=== PATIENT | male | born 1965 | race Caucasian/White ===

== ENCOUNTER 2017-01-13 18:16 | Inpatient (IN) ==
[2017-01-13] MEDS ORDERED: ACETAMINOPHEN 325 MG TABLET PO ONE (18:25)
[2017-01-13] MEDS ORDERED: 0.9 % SODIUM CHLORIDE 1,000 ML IV ONE ×3 (18:33→23:22)
[2017-01-13] MEDS ORDERED: AZITHROMYCIN 250 MG TABLET PO ONE (18:39)
[2017-01-13] MEDS ORDERED: cefTRIAXone 1 GM in DEXTROSE 5% IN WATER 50 ML IV ONE (18:39)
[2017-01-13] MEDS ORDERED: cefTRIAXone 1 GM VIAL ONE (18:58)
[2017-01-13 19:09] LABS: Basophils # (Auto) 0 K/mcL (0.0-0.3); Basophils % (Auto) 0.5 % (0.0-2.0); Eosinophils # (Auto) 0 K/mcL (0.0-0.7); Eosinophils % (Auto) 0.1 % (0.0-7.0); Granulocytes % (Auto) 90.6 % (38.0-78.0); Lymphocytes # (Auto) 0.4 K/mcL (1.5-4.8); Lymphocytes % (Auto) 3.9 % (15.5-49.0); Mean Cell Volume 87.6 fL (80.0-100.0); Mean Corpuscular HGB Conc 33.6 g/dL (31.0-36.0); Mean Corpuscular Hemoglobin 29.5 pg (26.0-34.0); Monocytes # (Auto) 0.5 K/mcL (0.1-0.9); Monocytes % (Auto) 4.9 % (1.0-12.0); Platelet Count 170 K/mcL (140-440); RBC 3.61 M/mcL (4.50-5.90)
[2017-01-13 19:28] LABS: ALT/SGPT 12 U/l (0-40); Albumin 2.8 gm/dL (3.2-5.2); Albumin/Globulin Ratio 0.8 (1.0-2.3); Alkaline Phosphatase 92 U/L (39-117); Blood Urea Nitrogen 37 mg/dl (6-20)
[2017-01-13] MEDS ORDERED: ALBUTEROL SULFATE 2.5 MG/3 ML NEBULIZER NEB ONE (19:33)
--- NOTE | 2017-01-13 19:36 | Emergency Department Note ---
Weakness HPI - General Chief complaint: Weakness Stated complaint: Weakness Time Seen by Provider: 01/13/17 19:33 Source: patient Mode of arrival: ambulatory Limitations: no limitations - History of Present Illness HPI Narrative: 51-year-old gentleman comes with feeling nauseated last evening and then nausea and vomiting this morning followed by feeling very cold and having bad shakes around 4 PM today. He has chronic rattles in his throat but he and his may have had a recent URI with bronchitis with an increase in some cough. He is not immune suppressed although has been in the past with Humira used for his psoriasis last given some time about 5 months ago. He reports having a TB test in the last year that was negative. He has had no recent travels. His cough is nonproductive, "I cannot get anything up". No recent aspiration concerns reported. - Related Data Allergies Allergy/AdvReac Type Severity Reaction Status Date / Time No Known Drug Allergies Allergy Verified 01/13/17 18:22 Review of Systems Review of Systems: No weight gain or weight loss. No sweatiness. Cardiovascular: No chest pain or palpitations but he does get swelling in his lower legs and ankles. Pulmonary: Short of breath, coughing, wheezing. Wheezing is mild and occasional chronically. GI: Nausea, vomiting, diarrhea, occasional constipation, no hematochezia. Genitourinary: No dysuria Neurologic: Has some headache now that is new. Some dizziness chronically. Off -and-on weakness today. He has chronic imbalance due to his previous stroke. He is supposed to use a cane per his . Endocrine: No chronic fatigue. Dermatologic: No unusual rashes or lesions except for his common ones of psoriasis. Past Medical History - Past Medical History Medical history: Reports: coronary artery disease, CVA, diabetes, GERD, hyperlipidemia, hypertension, myocardial infarction, thyroid disease, other ( left leg neuropathy; psoriasis.). Denies: cancer, COPD Surgical history ED: Reports: other (angioplasty vs stent) Psychiatric history: Denies: anxiety, depression - Social History smoking status: Current every day smoker Packs per day: 0.5 Alcohol use: Reports: Occasionally (6 pack per 2 weeks) Physical Exam - General Limitations: no limitations General appearance: alert, other (malaise (moderate)) - Head Head exam: atraumatic, normocephalic - Eye Eye exam: Present: normal appearance, PERRL (barely reactive.), EOMI - ENT ENT exam: normal oropharynx, mucous membranes dry (mild-moderately.), TM's normal bilaterally, normal external ear exam - Neck Neck exam: Present: trachea midline. Absent: lymphadenopathy, thyromegaly - Respiratory Respiratory exam: Present: other (crackles mild left base and occasionally in right base and left middle lung sears.). Absent: respiratory distress, wheezes , stridor, accessory muscle use, prolonged expiratory phase - Cardiovascular Cardiovascular exam: Present: regular rate, tachycardia. Absent: systolic murmur, diastolic murmur - Abdominal Exam Abdominal exam: Present: soft. Absent: distention, tenderness, guarding, rebound, rigidity - Neurological Exam Neurological exam: Present: alert, oriented X3, other (slight speech slowing; mentation mildly slowed.) - Psychiatric Psychiatric exam: Present: normal affect, normal mood - Skin Skin exam: Present: warm, dry Course Vital Signs Temperature 100.6 F H 01/13/17 18:17 Pulse Rate 126 H 01/13/17 18:17 Respiratory Rate 28 H 01/13/17 18:17 Blood Pressure 223/118 01/13/17 18:17 Pulse Oximetry (%) 85 L 01/13/17 18:17 Temperature 101.0 F H 01/13/17 20:51 Pulse Rate 121 H 01/13/17 18:30 Respiratory Rate 28 H 01/13/17 18:30 Blood Pressure 219/112 01/13/17 18:30 Pulse Oximetry (%) 94 01/13/17 18:30 Weakness - [facility] Narrative Medical decision making narrative: Patient presented with tachycardia, shortness of breath, crackles in the left base, fever, hypoxia. Multiple labs were drawn immediately including blood cultures and antibiotics were started quickly. A second set of blood culture was obtained after antibiotics. He is now given albuterol and additional IV fluids. Sepsis probably pneumonia source is initial consideration/impression. 7 :42 PM - Lab Data Result diagrams: 01/13/17 18:47 01/13/17 18:46 Lab Results 01/13/17 01/13/17 01/13/17 Range/Units 18:46 18:47 18:47 WBC 9.9 (4.5-11.0) K/mcL RBC 3.61 L (4.50-5.90) M/mcL Hgb 10.6 L (13.5-16.5) g/dL Hct 31.6 L (41.0-55.0) % MCV 87.6 (80.0-100.0) fL MCH 29.5 (26.0-34.0) pg MCHC 33.6 (31.0-36.0) g/dL RDW 16.0 H (11.5-14.5) % Plt Count 170 (140-440) K/mcL MPV 9.1 (7.4-10.4) fL Gran % 90.6 H (38.0-78.0) % Lymph % (Auto) 3.9 L (15.5-49.0) % Dougherty % (Auto) 4.9 (1.0-12.0) % Eos % (Auto) 0.1 (0.0-7.0) % Baso % (Auto) 0.5 (0.0-2.0) % Gran # 9.0 H (1.8-8.0) K/mcL Lymph # (Auto) 0.4 L (1.5-4.8) K/mcL Dougherty # (Auto) 0.5 (0.1-0.9) K/mcL Eos # (Auto) 0 (0.0-0.7) K/mcL Baso # (Auto) 0 (0.0-0.3) K/mcL VBG Lactic Acid 1.3 (0.5-2.2) mmol/L Sodium 141 (133-145) mmol/L Potassium 4.1 (3.3-5.1) mmol/L Chloride 108 (96-108) mmol/L Carbon Dioxide 17 L (22-30) mmol/L Anion Gap 16.0 (8-16) BUN 37 H (6-20) mg/dl Creatinine 2.7 H (0.7-1.2) mg/dl GFR Calculation 26 Glucose 402 H (70-105) mg/dL Calcium 8.2 L (8.6-10.4) mg/dl Total Bilirubin 0.3 (0.0-1.0) mg/dL AST 15 (0-37) U/l ALT 12 (0-40) U/l Alkaline Phosphatase 92 (39-117) U/L Total Protein 6.2 (5.9-8.4) gm/dL Albumin 2.8 L (3.2-5.2) gm/dL Globulin 3.4 (2.2-3.7) gm/dL Albumin/Globulin Ratio 0.8 L (1.0-2.3) Procalcitonin (<0.10) ng/mL 01/13/17 Range/Units 18:47 WBC (4.5-11.0) K/mcL RBC (4.50-5.90) M/mcL Hgb (13.5-16.5) g/dL Hct (41.0-55.0) % MCV (80.0-100.0) fL MCH (26.0-34.0) pg MCHC (31.0-36.0) g/dL RDW (11.5-14.5) % Plt Count (140-440) K/mcL MPV (7.4-10.4) fL Gran % (38.0-78.0) % Lymph % (Auto) (15.5-49.0) % Dougherty % (Auto) (1.0-12.0) % Eos % (Auto) (0.0-7.0) % Baso % (Auto) (0.0-2.0) % Gran # (1.8-8.0) K/mcL Lymph # (Auto) (1.5-4.8) K/mcL Dougherty # (Auto) (0.1-0.9) K/mcL Eos # (Auto) (0.0-0.7) K/mcL Baso # (Auto) (0.0-0.3) K/mcL VBG Lactic Acid (0.5-2.2) mmol/L Sodium (133-145) mmol/L Potassium (3.3-5.1) mmol/L Chloride (96-108) mmol/L Carbon Dioxide (22-30) mmol/L Anion Gap (8-16) BUN (6-20) mg/dl Creatinine (0.7-1.2) mg/dl GFR Calculation Glucose (70-105) mg/dL Calcium (8.6-10.4) mg/dl Total Bilirubin (0.0-1.0) mg/dL AST (0-37) U/l ALT (0-40) U/l Alkaline Phosphatase (39-117) U/L Total Protein (5.9-8.4) gm/dL Albumin (3.2-5.2) gm/dL Globulin (2.2-3.7) gm/dL Albumin/Globulin Ratio (1.0-2.3) Procalcitonin 0.55 (<0.10) ng/mL Disposition Pt seen by TRIPE COOKER/PA only: No Clinical Impression: Tachycardia, Hypoxia, Abnormal ECG Pneumonia Qualifiers: Pneumonia type: due to unspecified organism Laterality: unspecified laterality Lung location: unspecified part of lung Qualified Code(s): J18.9 - Pneumonia, unspecified organism Fever Qualifiers: Fever type: unspecified Qualified Code(s): R50.9 - Fever, unspecified Disposition: Xfer As Inpt ([facility]) Condition: Serious Referrals: No,PCP [Primary Care Provider] -
--- NOTE | 2017-01-13 22:22 | Internal Med History&Physical ---
Medical - H&P: HPI Patient information: Note initiated : 01/13/17 at 10:19 pm Service Date, if different from initiated Date: [] Patient: Vince Rivas a 51 y/o M admitted on for Weakness. Chief Complaint: [] History of present illness: Mr. Rivas is a 51 year old Male with multiple medical issues h/o humira use for psoriasis, but not for last 6 months presents to the ER with his as he was not feeling well over last 2 days. the patient was at his baseline status until yesterday afternoon when he noticed he was having some cough and not feeling very well, associated with some nauseaand stomach upset. His has had and while infection and he thought that he has got the same. This morning the patient had some nausea and vomiting. No blood in vomitus, however, he did vomit out what ever he ate. He has been feeling progressively weak since yesterday Since this afternoon he has been dizzy with weakness, unable to ambulate well, having chills, rigors and sweating, he therefore presented to the hospital for further evaluation. In the ER he was febrile, hypertensive, tachycardic and tachypenic, He was not ed to have left basilar crackles and was thought to have pneuonia. labs show normal wbc, elevated procal at 0.55, elevated creat at 2.7, no h/o renal dysfunction as per patient. The X Ray was done not officially reported but there is diffuse congestion and possible left retrocardiac infiltrate. The patient was given rocephin and zithromax and admitted to the hospital for further management. ABG done in the ER 7. on 2 L oxygen. All systems: reviewed and no additional remarkable complaints except as stated ( as per hpi) Medical - H&P: PMH Medical history: TIA dm htn hld cad mi 2014 gerd tghyroid issues neuropathy Surgical history: denies major surgery Pertinent family history: mother diet from heart issues dad healthy as per patient. Social history: binge social drinker smoker denies recreational drugs lives in [place] lives with Medical - H&P: Meds Allergies Allergy/AdvReac Type Severity Reaction Status Date / Time No Known Drug Allergies Allergy Verified 01/13/17 18:22 Medical - H&P: Exam - Constitutional Vitals: Temp Pulse Resp BP Pulse Ox 101.0 F H 121 H 28 H 219/112 94 01/13/17 20:51 01/13/17 18:30 01/13/17 18:30 01/13/17 18:30 01/13/17 18:30 Exam: GENERAL: The patient is a well-developed, well-nourished in no apparent distress. Is alert and oriented x3. VITAL SIGNS: Reviewed and as noted elsewhere. HEENT: Head is normocephalic and atraumatic. Extraocular muscles are intact. Pupils are equal, round, and reactive to light. Nares appeared normal. Mouth appears any without lesions. Mucous membranes are dry NECK: Normal to inspection, Supple, No lymphadenopathy or thyromegaly. LUNGS: Air entry equal on both sides, no wheezing, left basilar crackles noted. No accessory muscles of respiration, he was mildly tachenic, speaking full sentences. HEART: tachycardic rate and rhythm normal, S1 and S2 heard, no Gallop, S3 or Rub Noted, No Gross murmur heard. ABDOMEN: Soft, nontender, and nondistended. Positive bowel sounds. No hepatosplenomegaly was noted. EXTREMITIES: No cyanosis, clubbing, rash, lesions, present edema +++ NEUROLOGIC: Cranial nerves II through XII are grossly intact. Motor and Sensory System Grossly Intact PSYCHIATRIC: Normal affect, Normal Mood. Appropriate Behavior. SKIN: No ulceration or wounds noted, No jaundice, No rash noted. Medical - H&P: Reslt - Labs CBC & Chem 7: 01/13/17 18:47 01/13/17 18:46 Labs: Short CBC 01/13/17 Range/Units 18:47 WBC 9.9 (4.5-11.0) K/mcL Hgb 10.6 L (13.5-16.5) g/dL Hct 31.6 L (41.0-55.0) % Plt Count 170 (140-440) K/mcL BMP 01/13/17 18:46 Sodium 141 Potassium 4.1 Chloride 108 Carbon Dioxide 17 L BUN 37 H Creatinine 2.7 H Glucose 402 H Calcium 8.2 L Liver Function 01/13/17 Range/Units 18:46 Total Bilirubin 0.3 (0.0-1.0) mg/dL AST 15 (0-37) U/l ALT 12 (0-40) U/l Alkaline Phosphatase 92 (39-117) U/L Albumin 2.8 L (3.2-5.2) gm/dL - EKG Data -: EKG Reviewed by Myself (non sp st wave changes, no old ekg to compare. ) Medical - H&P: A/P - Narrative A/P Narrative: A/P Sepsis Community Acquired pneumonia Acute Kidney Injury Hyperglycemia, Uncontrolled Diabetes HTN CAD s/p DE Hypothrodism Neuropathy Non Anion Gap Acidosis Admit to telemetery status IV rocephin and zithromax for pna IV fluids, and monitor renal function get UA, consider renal sonogram if renal function does not improve with fluids check flu sliding scale insulin for DM get home medication list resume home meds once verified and appropriate ASA/ statin for cad for now, pt does not have active chest pain. DVT prophylaxis with hep sq Diet cardiac diabetic Full code PCP dr Mega Colin at [facility].
[2017-01-13] MEDS ORDERED: NALOXONE HCL 0.4 MG/ML VIAL IV PRN (23:22)
[2017-01-13] MEDS ORDERED: DEXTROSE 31 GM ORAL.SUSP PO PRN (23:22)
[2017-01-13] MEDS ORDERED: ONDANSETRON 4 MG/2 ML VIAL IV PRN (23:22)
[2017-01-13] MEDS ORDERED: ACETAMINOPHEN 325 MG TABLET PO PRN (23:22)
[2017-01-13] MEDS ORDERED: MAGNESIUM HYDROXIDE 30 ML ORAL.SUSP PO PRN (23:22)
[2017-01-13] MEDS ORDERED: DEXTROSE 50% 50 ML VIAL IV PRN (23:22)
[2017-01-13] MEDS: IPRATROPIUM/ALBUTEROL 3 ML AMPUL.NEB NEB SCH (23:50)
[2017-01-13] MEDS: cloNIDine HCL 0.1 MG TABLET PO PRN (23:50)
[2017-01-13] MEDS ORDERED: cloNIDine HCL 0.1 MG TABLET ONE (23:56)
[2017-01-13] MEDS ORDERED: IPRATROPIUM/ALBUTEROL 3 ML AMPUL.NEB NEB ONE (23:57)
[2017-01-14] LABS: Appearance,Urine HAZY; Bacteria,Urine FEW /hpf (0); Bilirubin,Urine NEG (NEG); Color,Urine YELLOW; Glucose,Urine (UA) >=500 mg/dL (NEG); Leukocyte Esterase,Urine NEG /uL (NEG); Mucus,Urine FEW /hpf (0); Nitrate,Urine NEG (NEG); Protein,Urine >=500 mg/dL (NEG); Specific Gravity,Urine 1.021 (1.000-1.035); Urine Blood 0.03 mg/dL (<0.03); Urine Hyaline Cast 20 /lpf (0-2); Urine RBC 6 /hpf (0-1); Urine Squamous Epithelial Cell < 1 /hpf (0-4); Urine Transitional Epi Cells < 1 /hpf (0-2); Urine WBC 1 /hpf (0-4); Urobilinogen,Urine NEG (NEG)
[2017-01-14] MEDS: INSULIN LISPRO 1 UNIT/0.01 ML UNIT SQ SCH ×5 (00:15→21:47)
[2017-01-14] MEDS ORDERED: INSULIN LISPRO 1 UNIT/0.01 ML UNIT SQ ONE (00:21)
[2017-01-14] MEDS ORDERED: IPRATROPIUM/ALBUTEROL 3 ML AMPUL.NEB NEB ONE (04:25)
[2017-01-14] MEDS: IPRATROPIUM/ALBUTEROL 3 ML AMPUL.NEB NEB SCH ×6 (04:40→22:39)
[2017-01-14] MEDS ORDERED: ACETAMINOPHEN 325 MG TABLET PO ONE (05:02)
[2017-01-14] MEDS ORDERED: cloNIDine HCL 0.1 MG TABLET ONE (05:02)
[2017-01-14 06:48] LABS: Estimated Average Glucose(eAG) 197 mg/dL; Hemoglobin A1C 8.5 % HGB (4.0-6.0)
--- NOTE | 2017-01-14 07:44 | XRay Report ---
HISTORY: Reason for Exam:Low o2 sats, SOB FINDINGS: There is a generalized haziness in the lung parenchyma bilaterally. This obscures pulmonary vessels. A band of discoid atelectasis is present centrally in the left lung. There is no lobar consolidation or pleural effusion. The heart size is within normal limits. IMPRESSION: Widespread opacities in both lungs. This could be due to pneumonia, pulmonary vascular congestion or nonspecific inflammatory reaction Interpreted and Authenticated by: Roger Cote 01/14/17
[2017-01-14 08:21] LABS: Basophils # (Auto) 0 K/mcL (0.0-0.3); Basophils % (Auto) 0.1 % (0.0-2.0); Eosinophils # (Auto) 0.1 K/mcL (0.0-0.7); Eosinophils % (Auto) 0.7 % (0.0-7.0); Granulocytes % (Auto) 83.4 % (38.0-78.0); Lymphocytes # (Auto) 0.5 K/mcL (1.5-4.8); Lymphocytes % (Auto) 6.1 % (15.5-49.0); Mean Cell Volume 87.4 fL (80.0-100.0); Mean Corpuscular Hemoglobin 28.9 pg (26.0-34.0); Monocytes # (Auto) 0.8 K/mcL (0.1-0.9); Monocytes % (Auto) 9.7 % (1.0-12.0); Platelet Count 161 K/mcL (140-440); RBC 3.17 M/mcL (4.50-5.90); Red Cell Distribution Width 16.2 % (11.5-14.5)
[2017-01-14] MEDS: HEPARIN 5,000 UNIT/ML VIAL SQ SCH ×2 (08:39→21:47)
[2017-01-14] MEDS: FAMOTIDINE 20 MG TABLET PO SCH ×2 (08:39→21:47)
[2017-01-14 09:04] LABS: ALT/SGPT 10 U/l (0-40); Albumin 2.4 gm/dL (3.2-5.2); Albumin/Globulin Ratio 0.8 (1.0-2.3); Alkaline Phosphatase 69 U/L (39-117); Bilirubin,Direct < 0.2 mg/dL (0.0-0.3); Blood Urea Nitrogen 38 mg/dl (6-20); Gamma Glutamyl Transpeptidase 14 U/L (8-61); Magnesium 1.3 mg/dL (1.6-2.5); Uric Acid 6.2 mg/dL (2.5-8.0)
[2017-01-14] MEDS: AZITHROMYCIN 250 MG in DEXTROSE 5% IN WATER 250 ML IV SCH (10:10)
[2017-01-14] MEDS: cloNIDine HCL 0.1 MG TABLET PO PRN ×2 (11:48→16:35)
--- NOTE | 2017-01-14 13:29 | Ultrasound Report ---
History: Acute renal failure Findings: Right kidney measures 5.5 x 6.9 x 12.3 cm the left measures 4.8 x 5.5 x 10.8 cm. There is a simple cyst in the lower pole of the left kidney which measures 2.5 x 2.6 x 2.9 cm. No mass, calculus or hydronephrosis are present in either kidney. The renal parenchyma is mildly echogenic bilaterally but there is no apparent loss of renal cortex. The urinary bladder is well distended containing 255 cc of urine. However, we were unable to document flow of urine through either ureter into the bladder. After voiding there is 111 cc of residual urine. Impression: Mild increased echogenicity in the renal cortex bilaterally due to medical renal disease Diminished urine output bilaterally, but without evidence of urinary tract obstruction Interpreted and Authenticated by: Roger Cote 01/14/17
[2017-01-14] MEDS ORDERED: 0.9 % SODIUM CHLORIDE 500 ML IV ONE (14:03)
[2017-01-14] MEDS ORDERED: 0.9 % SODIUM CHLORIDE 1,000 ML IV SCH (14:15)
[2017-01-14] MEDS: methylPREDNISolone SOD SUCC 125 MG/2 ML VIAL IV SCH ×2 (14:43→21:44)
[2017-01-14] MEDS: cefTRIAXone 1 GM in DEXTROSE 5% IN WATER 50 ML IV SCH (14:43)
--- NOTE | 2017-01-14 18:17 | Internal Med Progress Note ---
Medical - PN: Subj Patient information: Note initiated : 01/14/17 at 6:15 pm Service Date, if different from initiated Date: [] Patient: Vince Rivas a 51 y/o M admitted on 01/13/17 for Weakness/Pneumonia. Chief Complaint: [] Interval history: Mr. Rivas is a 51 year old Male with multiple medical issues h/o humira use for psoriasis, but not for last 6 months presents to the ER with his as he was not feeling well over last 2 days. the patient was at his baseline status until yesterday afternoon when he noticed he was having some cough and not feeling very well, associated with some nauseaand stomach upset. His has had and while infection and he thought that he has got the same. This morning the patient had some nausea and vomiting. No blood in vomitus, however, he did vomit out what ever he ate. He has been feeling progressively weak since yesterday Since this afternoon he has been dizzy with weakness, unable to ambulate well, having chills, rigors and sweating, he therefore presented to the hospital for further evaluation. In the ER he was febrile, hypertensive, tachycardic and tachypenic, He was not ed to have left basilar crackles and was thought to have pneuonia. labs show normal wbc, elevated procal at 0.55, elevated creat at 2.7, no h/o renal dysfunction as per patient. The X Ray was done not officially reported but there is diffuse congestion and possible left retrocardiac infiltrate. The patient was given rocephin and zithromax and admitted to the hospital for further management. ABG done in the ER 7.37 on 2 L oxygen. Oct 5 Pt seen exmined, somewhat looks better but still febrile, wbc normal, patient still febrile, renal functino worsening, renal usg ordered, IV fluids started, consider renal consult in AM if renal function continues to worsen Patient still has cough and feels weak and fatigued, but otherwise no other complaints. Pertinent ROS: Denies headache, dizziness Denies chest pain, palpitations Denies cough or shortness of breath Denies abdominal pain, nausea or vomiting. - Constitutional Vitals: Vital Signs Temp Pulse Resp BP Pulse Ox 98.6 F 98 H 24 H 193/100 92 01/14/17 17:20 01/14/17 16:00 01/14/17 16:00 01/14/17 16:00 01/14/17 16:00 Period Temp Pulse Resp BP Sys/Cade Pulse Ox Last 24 Hr 98.6 F-103.4 F 92-126 16-28 153-223/86-118 85-100 Intake and Output 01/14/17 01/14/17 01/14/17 05:59 13:59 21:59 Intake Total 100 / 100 970 / 970 200 / 200 Output Total 2 / 2 400 / 400 500 / 500 Balance 98 / 98 570 / 570 -300 / -300 Weight 205 lb 8 oz 205 lb 8 oz Patient Weight 01/15/17 05:59 Weight 205 lb 8 oz Intake & Output: Intake & Output 01/14/17 01/14/17 01/14/17 05:59 13:59 21:59 Intake Total 100 / 100 970 / 970 200 / 200 Output Total 2 / 2 400 / 400 500 / 500 Balance 98 / 98 570 / 570 -300 / -300 Weight 205 lb 8 oz 205 lb 8 oz Intake: IV 250 / 250 Zithromax 250 mg In Dextrose 5% 250 / 250 in Water 250 ml @ 250 mls/hr IV Q24H [facility] Rx#:[id number] Oral 100 / 100 720 / 720 200 / 200 Output: Urine Catheter Amount 100 / 100 Void Amount 400 / 400 400 / 400 # of times incontinent of urine 2 / 2 Other: Meal Breakfast Percent of Meal Consumed 50% Feeding Ability Independent Exam: Constitutional; febrile, cooperative, alert, not in distress. Eyes- No icterus, , No periorbital swelling Ears- Ext ear normal, hearing normal to conversation. Neck- Midline trachea, supple Respiratory system: Air Entry equal on both sides, No crackles , ronn wheezing, CVS- Rate rhythm regular, S1,S2 heard, no gallop, no rub. Abdomen- Soft nontender abdomen, no organomegaly, no tenderness, no guarding or rigidity, UNDERCUTTER- AOOx3, moving all extremities, no gross focal deficit noted. Medical - PN: Obj Da - Labs CBC & Chem 7: 01/14/17 03:30 01/14/17 08:09 Labs: Abnormal Lab Results 01/14/17 01/14/17 01/14/17 08:09 03:30 03:30 RBC 3.17 L Hgb 9.1 L Hct 27.7 L RDW 16.2 H Gran % 83.4 H Lymph % (Auto) 6.1 L Gran # Lymph # (Auto) 0.5 L Chloride 110 H Carbon Dioxide 20 L BUN 38 H Creatinine 3.1 H Glucose 162 H Hemoglobin A1c 8.5 H Calcium 8.0 L Magnesium 1.3 L Lactate Dehydrogenase 289 H Total Protein 5.3 L Albumin 2.4 L Albumin/Globulin Ratio 0.8 L Urine Protein Urine Glucose (UA) Urine Ketones Urine Occult Blood Urine RBC Urine Bacteria Hyaline Casts U [place] Prot/Creat Ratio 01/13/17 01/13/17 01/13/17 22:45 22:45 18:47 RBC 3.61 L Hgb 10.6 L Hct 31.6 L RDW 16.0 H Gran % 90.6 H Lymph % (Auto) 3.9 L Gran # 9.0 H Lymph # (Auto) 0.4 L Chloride Carbon Dioxide BUN Creatinine Glucose Hemoglobin A1c Calcium Magnesium Lactate Dehydrogenase Total Protein Albumin Albumin/Globulin Ratio Urine Protein >=500 A Urine Glucose (UA) >=500 A Urine Ketones 20 A Urine Occult Blood 0.03 A Urine RBC 6 H Urine Bacteria Few A Hyaline Casts 20 H U [place] Prot/Creat Ratio 1.93 H 01/13/17 18:46 RBC Hgb Hct RDW Gran % Lymph % (Auto) Gran # Lymph # (Auto) Chloride Carbon Dioxide 17 L BUN 37 H Creatinine 2.7 H Glucose 402 H Hemoglobin A1c Calcium 8.2 L Magnesium Lactate Dehydrogenase Total Protein Albumin 2.8 L Albumin/Globulin Ratio 0.8 L Urine Protein Urine Glucose (UA) Urine Ketones Urine Occult Blood Urine RBC Urine Bacteria Hyaline Casts U [place] Prot/Creat Ratio Meds: Medications Acetaminophen (Tylenol) 650 mg PO Q6HP PRN PRN Reason: PAIN/FEVER > 101 Last Admin: 01/14/17 16:35 Dose: 650 mg Albuterol/Ipratropium (Duoneb) 3 ml NEB Q4HRT GABO Last Admin: 01/14/17 14:17 Dose: Not Given Clonidine HCl (Catapres) 0.1 mg PO Q4HP PRN PRN Reason: Hypertension Last Admin: 01/14/17 16:35 Dose: 0.1 mg Dextrose (Dextrose 50%) 0 ml IV UD PRN PRN Reason: Hypoglycemia Diagnostic Test (Pha) (Accu-Chek) 1 each FS ACHS [facility] Last Admin: 01/14/17 17:00 Dose: 1 each Famotidine (Pepcid) 20 mg PO BID [facility] Last Admin: 01/14/17 08:39 Dose: 20 mg Glucose (Insta-Glucose) 15 gm PO PRN PRN PRN Reason: Hypoglycemia Heparin Sodium (Porcine) (Heparin) 5,000 unit SQ Q12 [facility] Last Admin: 01/14/17 08:39 Dose: 5,000 unit Azithromycin 250 mg/ Dextrose 250 mls @ 250 mls/hr IV Q24H [facility] Stop: 01/17/17 10:59 Last Infusion: 01/14/17 11:43 Dose: Infused Ceftriaxone Sodium 1 gm/ (Dextrose) 50 mls @ 100 mls/hr IV Q24H [facility] Last Admin: 01/14/17 14:43 Dose: 100 mls/hr Sodium Chloride (Sodium Chloride 0.9%) 1,000 mls @ 84 mls/hr IV .[id number] [facility] Last Admin: 01/14/17 14:42 Dose: 84 mls/hr Insulin Human Lispro (Humalog) 0 unit SQ ACHS [facility] PRN Reason: Protocol Last Admin: 01/14/17 17:02 Dose: Not Given Magnesium Hydroxide (Milk Of Magnesia) 30 ml PO DAILYP PRN PRN Reason: Constipation Methylprednisolone Sodium Succinate (Solu-Medrol) 62.5 mg IV Q8 [facility] Last Admin: 01/14/17 14:43 Dose: 62.5 mg Naloxone HCl (Narcan) 0.1 mg IV Q2MIN PRN PRN Reason: Opiate Reversal Ondansetron HCl (Zofran) 4 mg IV Q4HP PRN PRN Reason: Nausea And Vomiting Oxycodone/Acetaminophen (Percocet 5-325 Mg) 1 tab PO Q4HP PRN PRN Reason: Pain Medical - PN: A/P - Time Spent With Patient Total time spent is greater than 50% in coordination of care (as documented) at patient's floor/unit and/or counseling patient: - Narrative A/P Narrative: A/P Sepsis Community Acquired pneumonia Acute Kidney Injury Hyperglycemia, Uncontrolled Diabetes HTN CAD s/p MD Hypothrodism Neuropathy Non Anion Gap Acidosis copd/asthama exacerbation Continue IV rocephin and zithromax for pna, day 2 today, X Ray reported as ronn pna IV fluids, renal function worsening, renal sonogram ordered, urine studies ordered, yepez in place REnal consult in AM if renal function continues to worsen flu is neg sliding scale insulin for DM hold nephrotoxic meds, monitor. ASA/ statin for cad for now, pt does not have active chest pain. DVT prophylaxis with hep sq Diet cardiac diabetic Full code PCP dr Mega Colin at [facility]. Medical - PN: Qual - VTE Deep Vein Thrombosis/Pulmonary Embolism Present on Admission: No
[2017-01-14] MEDS ORDERED: FUROSEMIDE 40 MG/4 ML VIAL IV ONE ×2 (19:31→19:46)
[2017-01-14] MEDS ORDERED: SIMVASTATIN 40 MG TABLET PO SCH (21:00)
[2017-01-14 21:03] LABS: Blood Urea Nitrogen 41 mg/dl (6-20)
[2017-01-14] MEDS: PREGABALIN 100 MG CAPSULE PO SCH (21:46)
[2017-01-14] MEDS: oxyCODONE/APAP 5/325MG TABLET PO PRN (21:47)
[2017-01-15] MEDS: IPRATROPIUM/ALBUTEROL 3 ML AMPUL.NEB NEB SCH ×6 (02:33→23:07)
[2017-01-15] MEDS: methylPREDNISolone SOD SUCC 125 MG/2 ML VIAL IV SCH (05:23)
[2017-01-15 06:26] LABS: Basophils # (Auto) 0 K/mcL (0.0-0.3); Basophils % (Auto) 0.2 % (0.0-2.0); Eosinophils # (Auto) 0 K/mcL (0.0-0.7); Eosinophils % (Auto) 0.5 % (0.0-7.0); Granulocytes % (Auto) 85.4 % (38.0-78.0); Lymphocytes # (Auto) 0.5 K/mcL (1.5-4.8); Lymphocytes % (Auto) 11.4 % (15.5-49.0); Mean Cell Volume 87.9 fL (80.0-100.0); Mean Corpuscular HGB Conc 33.8 g/dL (31.0-36.0); Mean Corpuscular Hemoglobin 29.7 pg (26.0-34.0); Monocytes # (Auto) 0.1 K/mcL (0.1-0.9); Monocytes % (Auto) 2.5 % (1.0-12.0); Platelet Count 155 K/mcL (140-440); RBC 3.13 M/mcL (4.50-5.90); Red Cell Distribution Width 15.9 % (11.5-14.5)
[2017-01-15 07:29] LABS: ALT/SGPT 12 U/l (0-40); Albumin 2.5 gm/dL (3.2-5.2); Albumin/Globulin Ratio 0.8 (1.0-2.3); Alkaline Phosphatase 69 U/L (39-117); Bilirubin,Direct < 0.2 mg/dL (0.0-0.3); Blood Urea Nitrogen 47 mg/dl (6-20); Gamma Glutamyl Transpeptidase 16 U/L (8-61); Magnesium 1.5 mg/dL (1.6-2.5)
--- NOTE | 2017-01-15 07:42 | XRay Report ---
HISTORY: Reason for Exam:shortness of breath FINDINGS: There is a generalized haziness in the lung parenchyma bilaterally. This is unchanged from 01/13/17. The previously seen band of discoid atelectasis located in the central portion of the left lung has resolved. There is minor pleural thickening at the left costophrenic sulcus. The heart size is within normal limits. The pulmonary vessels are obscured by the alveolar opacities. IMPRESSION: Persistent infiltrates in both lungs which could be due to pneumonia, pulmonary vascular congestion or a nonspecific inflammatory reaction Interpreted and Authenticated by: Roger Cote 01/15/17
[2017-01-15] MEDS: INSULIN LISPRO 1 UNIT/0.01 ML UNIT SQ SCH ×7 (07:59→22:13)
[2017-01-15] MEDS: cefTRIAXone 1 GM in DEXTROSE 5% IN WATER 50 ML IV SCH (09:14)
[2017-01-15] MEDS: PREGABALIN 100 MG CAPSULE PO SCH ×2 (09:14→20:20)
[2017-01-15] MEDS: HEPARIN 5,000 UNIT/ML VIAL SQ SCH ×2 (09:14→20:21)
[2017-01-15] MEDS: FAMOTIDINE 20 MG TABLET PO SCH ×2 (09:15→20:20)
[2017-01-15] MEDS: amLODIPine 10 MG TABLET PO SCH (09:15)
[2017-01-15] MEDS ORDERED: FLU VACC QS2017-18 36MOS UP/PF 60 MCG/0.5 ML SYRINGE IM ONE (10:00)
[2017-01-15] MEDS: AZITHROMYCIN 250 MG in DEXTROSE 5% IN WATER 250 ML IV SCH (10:13)
[2017-01-15] MEDS ORDERED: INSULIN REGULAR, HUMAN 1 UNIT/0.01 ML UNIT IV ONE (13:43)
[2017-01-15] MEDS ORDERED: INSULIN REGULAR, HUMAN 1 UNIT/0.01 ML UNIT ONE (14:14)
--- NOTE | 2017-01-15 14:53 | Internal Med Progress Note ---
Medical - PN: Subj Patient information: Note initiated : 01/15/17 at 2:51 pm Service Date, if different from initiated Date: [] Patient: Vince Rivas a 51 y/o M admitted on 01/13/17 for Weakness/Pneumonia. Chief Complaint: [] Interval history: Mr. Rivas is a 51 year old Male with multiple medical issues h/o humira use for psoriasis, but not for last 6 months presents to the ER with his as he was not feeling well over last 2 days. the patient was at his baseline status until yesterday afternoon when he noticed he was having some cough and not feeling very well, associated with some nauseaand stomach upset. His has had and while infection and he thought that he has got the same. This morning the patient had some nausea and vomiting. No blood in vomitus, however, he did vomit out what ever he ate. He has been feeling progressively weak since yesterday Since this afternoon he has been dizzy with weakness, unable to ambulate well, having chills, rigors and sweating, he therefore presented to the hospital for further evaluation. In the ER he was febrile, hypertensive, tachycardic and tachypenic, He was not ed to have left basilar crackles and was thought to have pneuonia. labs show normal wbc, elevated procal at 0.55, elevated creat at 2.7, no h/o renal dysfunction as per patient. The X Ray was done not officially reported but there is diffuse congestion and possible left retrocardiac infiltrate. The patient was given rocephin and zithromax and admitted to the hospital for further management. ABG done in the ER 7. on 2 L oxygen. Jan 14 Pt seen exmined, somewhat looks better but still febrile, wbc normal, patient still febrile, renal functino worsening, renal usg ordered, IV fluids started, consider renal consult in AM if renal function continues to worsen Patient still has cough and feels weak and fatigued, but otherwise no other complaints. January 15: patient seen examined, looks better, feels better, wbc trending down and he is afebrile He denies any acute complaints but still is weak His labs show worsening acidosis and worsening renal functin, creat is up to 3.2 now, He is making urine, I have consulted nephrolgoy for eval ABG done today shows PH 7.32/, lactic acid is 0.7 he is participating in PT and seems to be doing well Pertinent ROS: Denies headache, dizziness Denies chest pain, palpitations cough and shortness of breath, much better Denies abdominal pain, nausea or vomiting. - Constitutional Vitals: Vital Signs Temp Pulse Resp BP Pulse Ox 98.8 F 81 18 187/105 98 01/15/17 12:00 01/15/17 12:00 01/15/17 12:00 01/15/17 12:00 01/15/17 12:00 Period Temp Pulse Resp BP Sys/Cade Pulse Ox Last 24 Hr 98.0 F-102.0 F 73-106 16-26 170-193/75-105 92-99 Intake and Output 01/15/17 01/15/17 01/15/17 05:59 13:59 21:59 Intake Total 710 / 710 1260 / 1260 Output Total 950 / 950 Balance -240 / -240 1260 / 1260 Intake & Output: Intake & Output 01/15/17 01/15/17 01/15/17 05:59 13:59 21:59 Intake Total 710 / 710 1260 / 1260 Output Total 950 / 950 Balance -240 / -240 1260 / 1260 Intake: IV 300 / 300 Zithromax 250 mg In Dextrose 5% 250 / 250 in Water 250 ml @ 250 mls/hr IV Q24H [facility] Rx#:[id number] Rocephin 1 gm In Dextrose 5% in 50 / 50 Water 50 ml @ 100 mls/hr IV Q24H [facility] Rx#:[id number] Oral 710 / 710 960 / 960 Output: Urine Catheter Amount 950 / 950 Other: Meal Lunch Percent of Meal Consumed 100% Feeding Ability Assist with Tray Set Up # Bowel Movements 1 1 Exam: Constitutional; Afebrile, cooperative, alert, not in distress. Eyes- No icterus, , No periorbital swelling Ears- Ext ear normal, hearing normal to conversation. Neck- Midline trachea, supple Respiratory system: Air Entry equal on both sides, No crackles or wheezing, no rhonchi. has prolonged exp phase CVS- Rate rhythm regular, S1,S2 heard, no gallop, no rub. Abdomen- Soft nontender abdomen, no organomegaly, no tenderness, no guarding or rigidity, COTTON TIER- AOOx3, moving all extremities, no gross new focal deficit noted. Medical - PN: Obj Da - Labs CBC & Chem 7: 01/15/17 03:35 01/15/17 03:35 Labs: Abnormal Lab Results 01/15/17 01/15/17 01/14/17 03:35 03:35 20:11 WBC 4.3 L RBC 3.13 L Hgb 9.3 L Hct 27.5 L RDW 15.9 H Gran % 85.4 H Lymph % (Auto) 11.4 L Gran # Lymph # (Auto) 0.5 L Chloride Carbon Dioxide 16 L 16 L Anion Gap 19.0 H 17.0 H BUN 47 H 41 H Creatinine 3.2 H 3.1 H Glucose 267 H 212 H Hemoglobin A1c Calcium 8.4 L 8.1 L Phosphorus 5.1 H Magnesium 1.5 L Lactate Dehydrogenase 322 H NT-Pro-B Natriuret Pep 36668.0 H Total Protein 5.7 L Albumin 2.5 L Albumin/Globulin Ratio 0.8 L Urine Protein Urine Glucose (UA) Urine Ketones Urine Occult Blood Urine RBC Urine Bacteria Hyaline Casts U Ald[place] Prot/Creat Ratio 01/14/17 01/14/17 01/14/17 08:09 03:30 03:30 WBC RBC 3.17 L Hgb 9.1 L Hct 27.7 L RDW 16.2 H Gran % 83.4 H Lymph % (Auto) 6.1 L Gran # Lymph # (Auto) 0.5 L Chloride 110 H Carbon Dioxide 20 L Anion Gap BUN 38 H Creatinine 3.1 H Glucose 162 H Hemoglobin A1c 8.5 H Calcium 8.0 L Phosphorus Magnesium 1.3 L Lactate Dehydrogenase 289 H NT-Pro-B Natriuret Pep Total Protein 5.3 L Albumin 2.4 L Albumin/Globulin Ratio 0.8 L Urine Protein Urine Glucose (UA) Urine Ketones Urine Occult Blood Urine RBC Urine Bacteria Hyaline Casts U [place] Prot/Creat Ratio 01/13/17 01/13/17 01/13/17 22:45 22:45 18:47 WBC RBC 3.61 L Hgb 10.6 L Hct 31.6 L RDW 16.0 H Gran % 90.6 H Lymph % (Auto) 3.9 L Gran # 9.0 H Lymph # (Auto) 0.4 L Chloride Carbon Dioxide Anion Gap BUN Creatinine Glucose Hemoglobin A1c Calcium Phosphorus Magnesium Lactate Dehydrogenase NT-Pro-B Natriuret Pep Total Protein Albumin Albumin/Globulin Ratio Urine Protein >=500 A Urine Glucose (UA) >=500 A Urine Ketones 20 A Urine Occult Blood 0.03 A Urine RBC 6 H Urine Bacteria Few A Hyaline Casts 20 H U Alden Prot/Creat Ratio 1.93 H 01/13/17 18:46 WBC RBC Hgb Hct RDW Gran % Lymph % (Auto) Gran # Lymph # (Auto) Chloride Carbon Dioxide 17 L Anion Gap BUN 37 H Creatinine 2.7 H Glucose 402 H Hemoglobin A1c Calcium 8.2 L Phosphorus Magnesium Lactate Dehydrogenase NT-Pro-B Natriuret Pep Total Protein Albumin 2.8 L Albumin/Globulin Ratio 0.8 L Urine Protein Urine Glucose (UA) Urine Ketones Urine Occult Blood Urine RBC Urine Bacteria Hyaline Casts U Ald[place] Prot/Creat Ratio Meds: Medications Acetaminophen (Tylenol) 650 mg PO Q6HP PRN PRN Reason: PAIN/FEVER > 101 Last Admin: 01/14/17 16:35 Dose: 650 mg Albuterol/Ipratropium (Duoneb) 3 ml NEB Q4HRT REPLACED BY [facility] Last Admin: 01/15/17 12:01 Dose: 3 ml Amlodipine Besylate (Norvasc) 10 mg PO DAILY REPLACED BY [facility] Last Admin: 01/15/17 09:15 Dose: 10 mg Clonidine HCl (Catapres) 0.1 mg PO Q4HP PRN PRN Reason: Hypertension Last Admin: 01/14/17 16:35 Dose: 0.1 mg Dextrose (Dextrose 50%) 0 ml IV UD PRN PRN Reason: Hypoglycemia Diagnostic Test (Pha) (Accu-Chek) 1 each FS ACHS REPLACED BY [facility] Last Admin: 01/15/17 14:10 Dose: 1 each Famotidine (Pepcid) 20 mg PO BID REPLACED BY [facility] Last Admin: 01/15/17 09:15 Dose: 20 mg Glucose (Insta-Glucose) 15 gm PO PRN PRN PRN Reason: Hypoglycemia Heparin Sodium (Porcine) (Heparin) 5,000 unit SQ Q12 REPLACED BY [facility] Last Admin: 01/15/17 09:14 Dose: 5,000 unit Azithromycin 250 mg/ Dextrose 250 mls @ 250 mls/hr IV Q24H REPLACED BY [facility] Stop: 01/17/17 10:59 Last Infusion: 01/15/17 12:16 Dose: Infused Ceftriaxone Sodium 1 gm/ (Dextrose) 50 mls @ 100 mls/hr IV Q24H REPLACED BY [facility] Last Infusion: 01/15/17 09:44 Dose: Infused Insulin Human Lispro (Humalog) 0 unit SQ ACHS REPLACED BY [facility] PRN Reason: Protocol Last Admin: 01/15/17 14:14 Dose: Not Given Magnesium Hydroxide (Milk Of Magnesia) 30 ml PO DAILYP PRN PRN Reason: Constipation Naloxone HCl (Narcan) 0.1 mg IV Q2MIN PRN PRN Reason: Opiate Reversal Ondansetron HCl (Zofran) 4 mg IV Q4HP PRN PRN Reason: Nausea And Vomiting Oxycodone/Acetaminophen (Percocet 5-325 Mg) 1 tab PO Q4HP PRN PRN Reason: Pain Last Admin: 01/14/17 21:47 Dose: 1 tab Prednisone (Prednisone) 40 mg PO [facility] Stop: 01/18/17 08:01 Pregabalin (Lyrica) 200 mg PO BID REPLACED BY [facility] Last Admin: 01/15/17 09:14 Dose: 200 mg Simvastatin (Zocor) 10 mg PO [facility] Medical - PN: A/P - Time Spent With Patient Total time spent is greater than 50% in coordination of care (as documented) at patient's floor/unit and/or counseling patient: - Narrative A/P Narrative: A/P Sepsis- resolved Community Acquired pneumonia- fever resoled, clinically improving with rocephin and zithromax, cultures neg so far Acute Kidney Injury- worsening, creat 3.2, likely has some baseline CKD, will try to get old records. Hyperglycemia, Uncontrolled Diabetes, glucose high today, increase sliding scale to medium scale, for glucose of > 500 give 10 units of regular insulin and monitor closely HTN- uncontrolled, hold home meds as can cause nephrotoxicitiy, prn clonidine and started on amlodipine today CAD s/p KS- no chest pain, on asa and statin. chf- bnp elevated but also has renal failure, monitor for now, Neuropathy- on lycrica, likely from DM Non Anion Gap Acidosis/ and anion gap acidosis_ From renal failure, nephrology following. copd/asthama exacerbation- duonebs, steroids, change from IV to oral steroids, clinically much better DVT prophylaxis with hep sq Diet cardiac diabetic Full code PCP dr Mega Colin at [facility]. Medical - PN: Qual - VTE Deep Vein Thrombosis/Pulmonary Embolism Present on Admission: No
--- NOTE | 2017-01-15 15:00 | Nephrology Consult Note ---
History of Present Illness - Reason for Consult Patient information: Note initiated : 01/15/17 at 2:57 pm Service Date, if different from initiated Date: [] Patient: Vince Rivas 51 y/o M admitted on 01/13/17 for Weakness/Pneumonia. Chief Complaint: [] Consult date: 01/15/17 acute renal failure Requesting physician: Judy Omer - Chief Complaint SOB - History of Present Illness Patient is a 51 y/o white male who is admitted with pneumonia He is noted to have s.creatinine of 2.7 on admission and this is been steadily getting worse to 3.1-3.2 and hence nephrology referral The patient lives near [place] and was in town, visiting, planning to eventually move down here He started feeling weak, had fever and chills, nausea, vomiting and hence presented to the ER He was noted on evaluation to have pneumonia on CXR, elevated s.creatinine and he was hospitalised for further management The patient is been treated with ceftriaxone and azithromycin with steroids for his respiratory issues he received some IVF he is noted to have persistently high BP while in the hospital The patient is feeling much better today He denies fever, chills at present. He has no GI symptoms. He does have LE edema which is new. He denies SOB at present he denies chest pain, dizziness He has a yepez cathetor and good amount of clear urine in the bag Review of Systems All systems PM: reviewed and no additional remarkable complaints except as stated (as in HPI) Past History Past medical history: DM type 2 with ? 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 h/o OR in 2013, states had angiography but did not need any intervention h/o HTN, does not check BP at home, a little elevated in the clinic was told has some abnormal renal function but has never seen a product support manager Past surgical history: angiography per Past family history: mother had cardiac issues father has no medical issues per pt Past social history: lives with his in a [place] city near [place] He smokes cig and drinks alcholol occasionally he has no h/o drug abuse Medications and Allergies Home Medications Medication Instructions Recorded Confirmed Type Levemir Flextouch 30 units SQ BID 01/14/17 01/14/17 History Lisinopril [Zestril] 10 mg PO 01/14/17 History Lyrica 200 mg PO BID 01/14/17 01/14/17 History Novolog Flexpen SQ TIDP PRN 01/14/17 History [place]-3 Acid Ethyl Esters 1 gm PO BID 01/14/17 01/14/17 History Proventil Hfa 2 puff INH Q4HP PRN 01/14/17 01/14/17 History Simvastatin [Zocor] 40 mg PO HS 01/14/17 01/14/17 History Allergies Allergy/AdvReac Type Severity Reaction Status Date / Time No Known Drug Allergies Allergy Verified 01/13/17 18:22 Exam - Vital Signs Vital signs: Temp Pulse Resp BP Pulse Ox 98.8 F 81 18 187/105 98 01/15/17 12:00 01/15/17 12:00 01/15/17 12:00 01/15/17 12:00 01/15/17 12:00 - General Appearance General appearance: appears started age, chronically ill EENT: mucous membranes moist Neck: no JVD Respiratory: clear Cardiology: no rub, edema, normal S1, normal S2 Gastrointestinal: no tenderness, no guarding Integumentary: rash (psoriasis ), warm and dry Neurologic: no asterixis, alert and oriented x3 Musculoskeletal: no erythema, no cyanosis Psychiatric: mood/affect appropriate Results - Lab Results 01/15/17 03:35 01/15/17 03:35 Most recent lab results Calcium 8.4 mg/dl (8.6-10.4) L 01/15/17 03:35 Phosphorus 5.1 mg/dL (2.7-4.5) H 01/15/17 03:35 Magnesium 1.5 mg/dL (1.6-2.5) L 01/15/17 03:35 Assessment and Plan (1) Acute on chronic renal failure S.Creatinine is 3.2, egfr is 22ml/min per CKD EPI equation renal function trend 2.7-3.1-3.2 UA with proteinuria, UPCR is around 2gm Renal US with medical renal disease Patient likely has chronic kidney from h/o DM type 2 and HTN his renal function is acutely worse in the setting of infection/ uncontrolled HTN I will obtain work up for secondary etiology agree with holding lisinopril I will add metoprolol to amlodipine and work on optimizing HTN control, please use prn clonidine to keep BP less than 160/100 steroid dose have been cut back this will help will give one more dose of lasix given fluid retention, this will help with HTN control as well will follow along please dose meds to egfr please do not use nephrotoxic medications Status: Acute
[2017-01-15] MEDS ORDERED: FUROSEMIDE 20 MG/2 ML VIAL IV ONE (15:17)
[2017-01-15] MEDS ORDERED: MAGNESIUM SULFATE 2 GM/50 ML BAG IV ONE ×2 (17:15→17:46)
[2017-01-15] MEDS ORDERED: INSULIN LISPRO 1 UNIT/0.01 ML UNIT SQ ONE (18:05)
[2017-01-15] MEDS ORDERED: LOPERAMIDE 2 MG CAPSULE PO PRN (18:30)
[2017-01-15] MEDS: METOPROLOL TARTRATE 25 MG TABLET PO SCH (20:20)
[2017-01-15] MEDS: SIMVASTATIN 20 MG TABLET PO SCH (20:20)
[2017-01-15] MEDS: FISH OIL 1,000 MG CAPSULE PO SCH (20:20)
[2017-01-15] MEDS: oxyCODONE/APAP 5/325MG TABLET PO PRN (20:21)
[2017-01-15] MEDS: INSULIN GLARGINE, HUMAN 1 UNIT/0.01 ML SQ SCH (20:22)
[2017-01-16] MEDS: IPRATROPIUM/ALBUTEROL 3 ML AMPUL.NEB NEB SCH ×6 (03:38→23:24)
[2017-01-16 07:05] LABS: Basophils # (Auto) 0 K/mcL (0.0-0.3); Basophils % (Auto) 0.1 % (0.0-2.0); Eosinophils # (Auto) 0 K/mcL (0.0-0.7); Eosinophils % (Auto) 0.3 % (0.0-7.0); Granulocytes % (Auto) 80.6 % (38.0-78.0); Lymphocytes # (Auto) 1.1 K/mcL (1.5-4.8); Lymphocytes % (Auto) 9.6 % (15.5-49.0); Mean Cell Volume 87.9 fL (80.0-100.0); Mean Corpuscular HGB Conc 33.2 g/dL (31.0-36.0); Mean Corpuscular Hemoglobin 29.2 pg (26.0-34.0); Monocytes % (Auto) 9.4 % (1.0-12.0); Platelet Count 194 K/mcL (140-440); RBC 2.95 M/mcL (4.50-5.90); Red Cell Distribution Width 16.4 % (11.5-14.5)
[2017-01-16 07:41] LABS: Complement C3 148.6 mg/dl (90-180)
[2017-01-16 08:09] LABS: ALT/SGPT 13 U/l (0-40); Albumin 2.5 gm/dL (3.2-5.2); Albumin/Globulin Ratio 0.9 (1.0-2.3); Alkaline Phosphatase 61 U/L (39-117); Bilirubin,Direct < 0.2 mg/dL (0.0-0.3); Blood Urea Nitrogen 66 mg/dl (6-20); Gamma Glutamyl Transpeptidase 16 U/L (8-61); Magnesium 2.1 mg/dL (1.6-2.5); Uric Acid 8.2 mg/dL (2.5-8.0)
[2017-01-16] MEDS: predniSONE 20 MG TABLET PO SCH (08:14)
[2017-01-16] MEDS: INSULIN LISPRO 1 UNIT/0.01 ML UNIT SQ SCH ×4 (08:14→21:13)
[2017-01-16] MEDS ORDERED: LISINOPRIL 10 MG TABLET PO SCH (09:00)
[2017-01-16 09:08] LABS: Hepatitis B Surface Antigen NEGATIVE (NEGATIVE); Hepatitis C Virus Antibody NON REACTIVE (NEGATIVE)
[2017-01-16 09:19] LABS: Hepatitis B Surface Antibody NEGATIVE (NEGATIVE)
[2017-01-16] MEDS: FAMOTIDINE 20 MG TABLET PO SCH ×2 (10:24→21:17)
[2017-01-16] MEDS: METOPROLOL TARTRATE 25 MG TABLET PO SCH ×2 (10:24→21:17)
[2017-01-16] MEDS: PREGABALIN 100 MG CAPSULE PO SCH ×2 (10:24→21:17)
[2017-01-16] MEDS: amLODIPine 10 MG TABLET PO SCH (10:24)
[2017-01-16] MEDS: FISH OIL 1,000 MG CAPSULE PO SCH ×2 (10:24→21:17)
[2017-01-16] MEDS: HEPARIN 5,000 UNIT/ML VIAL SQ SCH ×2 (10:24→21:13)
[2017-01-16] MEDS: cefTRIAXone 1 GM in DEXTROSE 5% IN WATER 50 ML IV SCH (10:25)
[2017-01-16] MEDS: INSULIN GLARGINE, HUMAN 1 UNIT/0.01 ML SQ SCH ×2 (10:25→21:13)
[2017-01-16] MEDS: AZITHROMYCIN 250 MG in DEXTROSE 5% IN WATER 250 ML IV SCH (11:10)
--- NOTE | 2017-01-16 11:54 | Internal Med Progress Note ---
Medical - PN: Subj Patient information: Note initiated : 01/16/17 at 11:53 am Patient: Vince Rivas 51 y/o M admitted on 01/13/17 for Weakness/Pneumonia. Interval history: January 13, 2017: History of present illness: Mr. Rivas is a 51 year old Male with multiple medical issues h/o humira use for psoriasis, but not for last 6 months presents to the ER with his as he was not feeling well over last 2 days. the patient was at his baseline status until yesterday afternoon when he noticed he was having some cough and not feeling very well, associated with some nauseaand stomach upset. His has had and while infection and he thought that he has got the same. This morning the patient had some nausea and vomiting. No blood in vomitus, however, he did vomit out what ever he ate. He has been feeling progressively weak since yesterday Since this afternoon he has been dizzy with weakness, unable to ambulate well, having chills, rigors and sweating, he therefore presented to the hospital for further evaluation. In the ER he was febrile, hypertensive, tachycardic and tachypenic, He was noted to have left basilar crackles and was thought to have pneumonia. labs show normal wbc, elevated procal at 0.55, elevated creat at 2.7, no h/o renal dysfunction as per patient. The X Ray was done not officially reported but there is diffuse congestion and possible left retrocardiac infiltrate. The patient was given rocephin and zithromax and admitted to the hospital for further management. ABG done in the ER 7.37/32/74 on 2 L oxygen. Jan 14 Pt seen exmined, somewhat looks better but still febrile, wbc normal, patient still febrile, renal functinon worsening, renal us ordered, IV fluids started, consider renal consult in AM if renal function continues to worsen Patient still has cough and feels weak and fatigued, but otherwise no other complaints. January 15: patient seen examined, looks better, feels better, wbc trending down and he is afebrile He denies any acute complaints but still is weak His labs show worsening acidosis and worsening renal function, creat is up to 3.2 now, He is making urine, I have consulted nephrology for eval ABG done today shows PH 7.32/31/78, lactic acid is 0.7 he is participating in PT and seems to be doing well January 16: This patient has numerous underlying conditions, including type 2 diabetes, chronic tobacco abuse, multiple previous TIAs, previous [place], COPD, psoriasis, and presented on January 13 with weakness and chills. He was diagnosed with bilateral pneumonia, although he had a normal white blood cell count. He was also noted to have significant worsening of his renal function. Blood glucoses have also been running rather markedly high. He is currently being treated with Rocephin and Zithromax for community-acquired pneumonia. He has been slowly improving. Today, the patient says he continues to have a nonproductive cough. He still has a little bit of heartburn. He denies fever or chills, chest pain or shortness of breath. His speech is a little slurred, and initially his blames this on his previous TIAs, but then later says she thinks he is a little more confused than usual because we have given him pain medications. He had one episode of a loose stool last night. He denies any dysuria. His notes that he has been having heartburn since he has been here. She does not think that we have given him the same medication that he takes over-the -counter at home for this. He admits that he still smokes about half a pack of cigarettes per week. - Constitutional Vitals: Vital Signs Temp Pulse Resp BP Pulse Ox 98.6 F 88 20 172/96 98 01/16/17 07:51 01/16/17 11:36 01/16/17 11:36 01/16/17 07:51 01/16/17 07:51 Period Temp Pulse Resp BP Sys/Cade Pulse Ox Last 24 Hr 98.3 F-98.9 F 77-90 16-24 150-187/81-105 96-98 Intake and Output 01/15/17 01/16/17 01/16/17 21:59 05:59 13:59 Intake Total 750 / 750 200 / 200 290 / 290 Output Total 700 / 700 850 / 850 Balance 50 / 50 -650 / -650 290 / 290 Weight 204 lb Intake & Output: Intake & Output 01/15/17 01/16/17 01/16/17 21:59 05:59 13:59 Intake Total 750 / 750 200 / 200 290 / 290 Output Total 700 / 700 850 / 850 Balance 50 / 50 -650 / -650 290 / 290 Weight 204 lb Intake: IV 50 / 50 Rocephin 1 gm In Dextrose 5% in 50 / 50 Water 50 ml @ 100 mls/hr IV Q24H [facility] Rx#:[id number] Oral 750 / 750 200 / 200 240 / 240 Output: Urine Catheter Amount 700 / 700 850 / 850 Other: Meal Breakfast Percent of Meal Consumed 100% On exam, he is a well-developed well-nourished man, who seems a little bit drifty on questioning. Speech is a bit slurred. Temperature 98.8, heart rate 88, respiratory rate 20, blood pressure 162/87, O2 saturation 98% on room air Intake and output measurements suggest that he is ahead on fluids by about 3 L. Neck shows no obvious JVD or lymphadenopathy. Cardiac exam shows regular rate and rhythm. Lungs diffuse wheezes heard throughout both lung sears. Abdomen is obese, but soft and nontender. Extremities show trace edema. Neurologic exam: The patient is awake and alert, but tends not to answer the questions I ask. For example, when I asked him how he is feeling today, he kept talking about getting his yogurt in his coffee. He was able to follow simple commands, although he had some trouble sitting up for me to listen to his lungs. Motor exam is otherwise grossly symmetric. Medical - PN: Obj Da - Labs CBC & Chem 7: 01/16/17 03:40 01/16/17 03:40 Labs: Abnormal Lab Results 01/16/17 01/16/17 01/16/17 03:40 03:40 03:40 WBC RBC 2.95 L Hgb 8.6 L Hct 26.0 L RDW 16.4 H Gran % 80.6 H Lymph % (Auto) 9.6 L Gran # 8.9 H Lymph # (Auto) 1.1 L [place] # (Auto) 1.0 H Chloride Carbon Dioxide 17 L Anion Gap 17.0 H BUN 66 H Creatinine 3.4 H Glucose 159 H Hemoglobin A1c Uric Acid 8.2 H Calcium 8.0 L Phosphorus 4.6 H Magnesium Lactate Dehydrogenase 277 H NT-Pro-B Natriuret Pep Total Protein 5.3 L Albumin 2.5 L Albumin/Globulin Ratio 0.9 L PTH Intact 110.5 H Urine Protein Urine Glucose (UA) Urine Ketones Urine Occult Blood Urine RBC Urine Bacteria Hyaline Casts U [place] Prot/Creat Ratio 01/15/17 01/15/17 01/14/17 03:35 03:35 20:11 WBC 4.3 L RBC 3.13 L Hgb 9.3 L Hct 27.5 L RDW 15.9 H Gran % 85.4 H Lymph % (Auto) 11.4 L Gran # Lymph # (Auto) 0.5 L [place] # (Auto) Chloride Carbon Dioxide 16 L 16 L Anion Gap 19.0 H 17.0 H BUN 47 H 41 H Creatinine 3.2 H 3.1 H Glucose 267 H 212 H Hemoglobin A1c Uric Acid Calcium 8.4 L 8.1 L Phosphorus 5.1 H Magnesium 1.5 L Lactate Dehydrogenase 322 H NT-Pro-B Natriuret Pep 89069.0 H Total Protein 5.7 L Albumin 2.5 L Albumin/Globulin Ratio 0.8 L PTH Intact Urine Protein Urine Glucose (UA) Urine Ketones Urine Occult Blood Urine RBC Urine Bacteria Hyaline Casts U [place] Prot/Creat Ratio 01/14/17 01/14/17 01/14/17 08:09 03:30 03:30 WBC RBC 3.17 L Hgb 9.1 L Hct 27.7 L RDW 16.2 H Gran % 83.4 H Lymph % (Auto) 6.1 L Gran # Lymph # (Auto) 0.5 L [place] # (Auto) Chloride 110 H Carbon Dioxide 20 L Anion Gap BUN 38 H Creatinine 3.1 H Glucose 162 H Hemoglobin A1c 8.5 H Uric Acid Calcium 8.0 L Phosphorus Magnesium 1.3 L Lactate Dehydrogenase 289 H NT-Pro-B Natriuret Pep Total Protein 5.3 L Albumin 2.4 L Albumin/Globulin Ratio 0.8 L PTH Intact Urine Protein Urine Glucose (UA) Urine Ketones Urine Occult Blood Urine RBC Urine Bacteria Hyaline Casts U [place] Prot/Creat Ratio 01/13/17 01/13/17 01/13/17 22:45 22:45 18:47 WBC RBC 3.61 L Hgb 10.6 L Hct 31.6 L RDW 16.0 H Gran % 90.6 H Lymph % (Auto) 3.9 L Gran # 9.0 H Lymph # (Auto) 0.4 L [place] # (Auto) Chloride Carbon Dioxide Anion Gap BUN Creatinine Glucose Hemoglobin A1c Uric Acid Calcium Phosphorus Magnesium Lactate Dehydrogenase NT-Pro-B Natriuret Pep Total Protein Albumin Albumin/Globulin Ratio PTH Intact Urine Protein >=500 A Urine Glucose (UA) >=500 A Urine Ketones 20 A Urine Occult Blood 0.03 A Urine RBC 6 H Urine Bacteria Few A Hyaline Casts 20 H U [place] Prot/Creat Ratio 1.93 H 01/13/17 18:46 WBC RBC Hgb Hct RDW Gran % Lymph % (Auto) Gran # Lymph # (Auto) [place] # (Auto) Chloride Carbon Dioxide 17 L Anion Gap BUN 37 H Creatinine 2.7 H Glucose 402 H Hemoglobin A1c Uric Acid Calcium 8.2 L Phosphorus Magnesium Lactate Dehydrogenase NT-Pro-B Natriuret Pep Total Protein Albumin 2.8 L Albumin/Globulin Ratio 0.8 L PTH Intact Urine Protein Urine Glucose (UA) Urine Ketones Urine Occult Blood Urine RBC Urine Bacteria Hyaline Casts U [place] Prot/Creat Ratio January 16: Urine culture is negative. Blood cultures are negative so far. Sputum culture: Showed oral contamination. January 15: ABG on room air: 7.32, PCO2 31, PO2 78, bicarb 16, O2 saturation 94% January 14: BNP is elevated at 23,178 Albumin is low at 2.5 PTH-intact is elevated at 110 Hepatitis B and C screens are negative. Multiple rheumatologic studies are still pending. Chest x-ray: Shows persistent infiltrates in both lungs which could be due to pneumonia versus other inflammation, versus pulmonary vascular congestion. Next Renal ultrasound shows increased echogenicity suggesting medical renal disease. Diminished urine output bilaterally. Meds: Medications Acetaminophen (Tylenol) 650 mg PO Q6HP PRN PRN Reason: PAIN/FEVER > 101 Last Admin: 01/14/17 16:35 Dose: 650 mg Albuterol/Ipratropium (Duoneb) 3 ml NEB Q4HRT G[facility] Last Admin: 01/16/17 11:35 Dose: 3 ml Amlodipine Besylate (Norvasc) 10 mg PO DAILY [facility] Last Admin: 01/16/17 10:24 Dose: 10 mg Clonidine HCl (Catapres) 0.1 mg PO Q4HP PRN PRN Reason: Hypertension Last Admin: 01/14/17 16:35 Dose: 0.1 mg Dextrose (Dextrose 50%) 0 ml IV UD PRN PRN Reason: Hypoglycemia Diagnostic Test (Pha) (Accu-Chek) 1 each FS ACHS [facility] Last Admin: 01/16/17 11:52 Dose: 1 each Famotidine (Pepcid) 20 mg PO BID [facility] Last Admin: 01/16/17 10:24 Dose: 20 mg Fish Oil (Fish Oil) 1,000 mg PO BID [facility] Last Admin: 01/16/17 10:24 Dose: 1,000 mg Glucose (Insta-Glucose) 15 gm PO PRN PRN PRN Reason: Hypoglycemia Heparin Sodium (Porcine) (Heparin) 5,000 unit SQ Q12 [facility] Last Admin: 01/16/17 10:24 Dose: 5,000 unit Azithromycin 250 mg/ Dextrose 250 mls @ 250 mls/hr IV Q24H [facility] Stop: 01/17/17 10:59 Last Admin: 01/16/17 11:10 Dose: 250 mls/hr Ceftriaxone Sodium 1 gm/ (Dextrose) 50 mls @ 100 mls/hr IV Q24H [facility] Last Infusion: 01/16/17 11:00 Dose: Infused Insulin Glargine (Lantus) 30 unit SQ BID [facility] Last Admin: 01/16/17 10:25 Dose: 30 unit Insulin Human Lispro (Humalog) 0 unit SQ [facility] PRN Reason: Protocol Last Admin: 01/16/17 08:14 Dose: 12 unit Loperamide HCl (Imodium) 2 mg PO PRN PRN PRN Reason: Diarrhea Magnesium Hydroxide (Milk Of Magnesia) 30 ml PO DAILYP PRN PRN Reason: Constipation Metoprolol Tartrate (Lopressor) 25 mg PO BID [facility] Last Admin: 01/16/17 10:24 Dose: 25 mg Naloxone HCl (Narcan) 0.1 mg IV Q2MIN PRN PRN Reason: Opiate Reversal Ondansetron HCl (Zofran) 4 mg IV Q4HP PRN PRN Reason: Nausea And Vomiting Oxycodone/Acetaminophen (Percocet 5-325 Mg) 1 tab PO Q4HP PRN PRN Reason: Pain Last Admin: 01/15/17 20:21 Dose: 1 tab Prednisone (Prednisone) 40 mg [address] [facility] Stop: 01/18/17 08:01 Last Admin: 01/16/17 08:14 Dose: 40 mg Pregabalin (Lyrica) 200 mg PO BID [facility] Last Admin: 01/16/17 10:24 Dose: 200 mg Simvastatin (Zocor) 10 mg PO HS [facility] Last Admin: 01/15/17 20:20 Dose: 10 mg Medical - PN: A/P - Time Spent With Patient Total time spent is greater than 50% in coordination of care (as documented) at patient's floor/unit and/or counseling patient: Greater than 35 minutes - Narrative A/P Narrative: A/P #1. Sepsis- resolved . #2. Infectious disease. Community Acquired pneumonia- fever resoled, clinically improving with rocephin and zithromax, cultures neg so far. Screens for influenza a and B are negative. Mycoplasma screen is negative. Legionella screen is pending. Check pneumococcal screen. #3. Acute Kidney Injury- worsening, creat 3.2, likely has some baseline CKD, will try to get old records. -Kidney function continues to decline. He is being followed by nephrology. I's and O's are quite positive at this time. #4. Endocrine. Hyperglycemia, Uncontrolled Diabetes, -Lantus was resumed last night. Sliding scale is increased. Continue to follow. #5. HTN- uncontrolled, hold home meds as can cause nephrotoxicitiy, -Nephrology continued amlodipine and metoprolol, and added hydralazine. #6. Cardiac. CAD s/p [place]- no chest pain, on asa and statin. BNP is quite elevated, and there is some question of CHF. -Check echocardiogram. #7. Neuropathy- on lyrica, likely from DM #8. Non Anion Gap Acidosis/ and anion gap acidosis_ From renal failure, nephrology following. #9. Pulmonary copd/asthama exacerbation- duonebs, steroids, change from IV to oral steroids, clinically much better 10. Tobacco abuse. I strongly encouraged the patient today to give up smoking. We discussed that tobacco is bad for his heart disease, his risk of stroke, his lungs, and his kidneys. #11. DVT prophylaxis with hep sq #12. Diet cardiac, diabetic. He may also need a renal diet. #13. Full code #14. PCP dr Mega Colin (or Dr. Luo) at [facility], in [place], [place]. Approximately 35 minutes was spent today, reviewing the patient's records and test results, interviewing and examining him, reviewing plan of care with he and his , and writing orders. Medical - PN: Qual - VTE Deep Vein Thrombosis/Pulmonary Embolism Present on Admission: No
--- NOTE | 2017-01-16 13:45 | Nephrology Progress Note ---
Subjective Patient information: Note initiated : 01/16/17 at 1:41 pm Service Date, if different from initiated Date: [] Patient: Vince Rivas 51 y/o M admitted on 01/13/17 for Weakness/Pneumonia. Chief Complaint: [] Principal diagnosis: Pneumonia Interval history: no overnight events blood glucose still running high but better than yesterday, started on lantus and on sliding scale LE edema is better, denies worsening SOB does c/o dizziness No GI symptoms no other concerns Pertinent ROS: as above Objective - Vital Signs Vital signs: Vital Signs Temp Pulse Pulse Resp BP BP Pulse Ox 01/16/17 12:00 98.8 F 80 20 162/87 98 01/16/17 11:36 88 20 01/16/17 07:51 98.6 F 80 24 H 172/96 98 01/16/17 07:30 20 98 01/16/17 07:20 77 20 01/16/17 04:00 98.7 F 77 18 150/83 97 01/15/17 23:50 98.3 F 85 20 160/81 98 01/15/17 23:09 84 16 01/15/17 20:00 98.9 F 89 18 180/92 97 01/15/17 19:05 90 18 97 01/15/17 16:00 98.9 F 89 18 168/93 96 01/15/17 15:00 86 16 Intake and Output 01/15/17 01/16/17 01/16/17 21:59 05:59 13:59 Intake Total 750 / 750 200 / 200 290 / 290 Output Total 700 / 700 850 / 850 Balance 50 / 50 -650 / -650 290 / 290 Intake: IV 50 / 50 Rocephin 1 gm In Dextrose 5% in 50 / 50 Water 50 ml @ 100 mls/hr IV Q24H [facility] Rx#:[id number] Oral 750 / 750 200 / 200 240 / 240 Output: Urine Catheter Amount 700 / 700 850 / 850 Other: Meal Breakfast Percent of Meal Consumed 100% Weight 204 lb Intake & Output: Intake & Output 01/15/17 01/16/17 01/16/17 21:59 05:59 13:59 Intake Total 750 / 750 200 / 200 290 / 290 Output Total 700 / 700 850 / 850 Balance 50 / 50 -650 / -650 290 / 290 Weight 204 lb Intake: IV 50 / 50 Rocephin 1 gm In Dextrose 5% in 50 / 50 Water 50 ml @ 100 mls/hr IV Q24H [facility] Rx#:[id number] Oral 750 / 750 200 / 200 240 / 240 Output: Urine Catheter Amount 700 / 700 850 / 850 Other: Meal Breakfast Percent of Meal Consumed 100% - General Appearance General appearance: appears started age, chronically ill EENT: mucous membranes moist Neck: no JVD Respiratory: clear Cardiology: no rub, no edema, normal S1, normal S2 Gastrointestinal: no tenderness, no guarding Integumentary: warm and dry Neurologic: no asterixis, alert and oriented x3 Musculoskeletal: no erythema, no clubbing Psychiatric: mood/affect appropriate - Lab 01/16/17 03:40 01/16/17 03:40 Most recent lab results Calcium 8.0 mg/dl (8.6-10.4) L 01/16/17 03:40 Phosphorus 4.6 mg/dL (2.7-4.5) H 01/16/17 03:40 Magnesium 2.1 mg/dL (1.6-2.5) 01/16/17 03:40 Assessment and Plan (1) Acute on chronic renal failure s.creatinine is 3.4 this am, egfr is 20ml/min per CKD EPI equation slow steady decline of renal function in the setting of sepsis, uncontrolled DM and HTN WORK UP FOR SECONDARY ETIOLOGY WORKING will add low dose hydralazine to try and keep systolic BP in 140 range, and diastolic below [address] amlodipine and metoprolol closely monitor blood glucose to keep this below 200 pt requested to drink more fluids/water will obtain anemia work up avoid nephrotoxic meds dose meds to renal function patient is eager to go home as he is in process of moving, explained cannot be discharged until renal function improves or atleast plateaus will follow along Status: Acute
[2017-01-16] MEDS: hydrALAZINE 10 MG TABLET PO SCH ×2 (16:53→21:17)
[2017-01-16] MEDS: SIMVASTATIN 20 MG TABLET PO SCH (21:15)
[2017-01-17] MEDS: IPRATROPIUM/ALBUTEROL 3 ML AMPUL.NEB NEB SCH ×5 (02:58→15:08)
[2017-01-17 05:17] LABS: Basophils # (Auto) 0 K/mcL (0.0-0.3); Basophils % (Auto) 0.1 % (0.0-2.0); Eosinophils # (Auto) 0 K/mcL (0.0-0.7); Eosinophils % (Auto) 0 % (0.0-7.0); Granulocytes % (Auto) 81.4 % (38.0-78.0); Lymphocytes % (Auto) 10.1 % (15.5-49.0); Mean Cell Volume 87.7 fL (80.0-100.0); Mean Corpuscular HGB Conc 33.1 g/dL (31.0-36.0); Monocytes # (Auto) 0.8 K/mcL (0.1-0.9); Monocytes % (Auto) 8.4 % (1.0-12.0); Platelet Count 204 K/mcL (140-440); RBC 3.13 M/mcL (4.50-5.90); Red Cell Distribution Width 16.1 % (11.5-14.5)
[2017-01-17 05:44] LABS: ALT/SGPT 16 U/l (0-40); Albumin 2.7 gm/dL (3.2-5.2); Albumin/Globulin Ratio 0.9 (1.0-2.3); Alkaline Phosphatase 66 U/L (39-117); Bilirubin,Direct < 0.2 mg/dL (0.0-0.3); Blood Urea Nitrogen 67 mg/dl (6-20); Gamma Glutamyl Transpeptidase 20 U/L (8-61); Iron 41 mcg/dl (61-157); Transferrin % Saturation 22 % (20-50); Unsaturated Iron Binding 138 mcg/dL (112-346); Uric Acid 8.3 mg/dL (2.5-8.0)
[2017-01-17 06:02] LABS: Ferritin 269.1 ng/ml (30-400)
[2017-01-17] MEDS: INSULIN LISPRO 1 UNIT/0.01 ML UNIT SQ SCH (07:33)
[2017-01-17] MEDS: predniSONE 20 MG TABLET PO SCH (07:43)
[2017-01-17] MEDS: cloNIDine HCL 0.1 MG TABLET PO PRN (07:43)
[2017-01-17 07:52] LABS: Vitamin B12 509.2 pg/ml (243-894)
[2017-01-17] MEDS: INSULIN GLARGINE, HUMAN 1 UNIT/0.01 ML SQ SCH (09:00)
--- NOTE | 2017-01-17 09:16 | Ultrasound Report ---
History: Renal failure and uncontrolled hypertension Findings: The patient was technically difficult to scan due to body habitus and bowel gas. The aorta is normal in caliber and has normal flow velocities. The proximal portions of both renal arteries were difficult to visualize. The visualized portions appear to have normal flow velocities. In the midportion of the right main renal artery there is mildly elevated peak systolic flow velocity of 139 cm/s. Distally it is 122 cm/s. Corresponding left renal artery measures 110 cm/s. The renal to renal ratio and renal to interlobar ratios are normal bilaterally. Impression: Limited exam with a less than 50% stenosis in the midportion of the right main renal artery. No evidence of stenosis in the left renal artery Interpreted and Authenticated by: Roger Cote 01/17/17
[2017-01-17] MEDS ORDERED: INSULIN LISPRO 1 UNIT/0.01 ML UNIT SQ SCH (09:17)
[2017-01-17] MEDS: hydrALAZINE 10 MG TABLET PO SCH ×2 (10:07→15:19)
[2017-01-17] MEDS: METOPROLOL TARTRATE 25 MG TABLET PO SCH (10:07)
[2017-01-17] MEDS: PREGABALIN 100 MG CAPSULE PO SCH (10:07)
[2017-01-17] MEDS: HEPARIN 5,000 UNIT/ML VIAL SQ SCH (10:07)
[2017-01-17] MEDS: FISH OIL 1,000 MG CAPSULE PO SCH (10:07)
[2017-01-17] MEDS: amLODIPine 10 MG TABLET PO SCH (10:07)
[2017-01-17] MEDS: cefTRIAXone 1 GM in DEXTROSE 5% IN WATER 50 ML IV SCH (10:07)
--- NOTE | 2017-01-17 10:22 | Internal Med Progress Note ---
Medical - PN: Subj Patient information: Note initiated : 01/17/17 at 10:22 am Service Date, if different from initiated Date: [] Patient: Vince Rivas 51 y/o M admitted on 01/13/17 for Weakness/Pneumonia. Chief Complaint: [] - Constitutional Vitals: Vital Signs Temp Pulse Resp BP Pulse Ox 98.5 F 85 20 184/97 99 01/17/17 07:37 01/17/17 07:37 01/17/17 07:37 01/17/17 07:37 01/17/17 07:37 Period Temp Pulse Resp BP Sys/Cade Pulse Ox Last 24 Hr 97.7 F-99.0 F 79-88 18-20 161-184/82-97 95-99 Intake and Output 01/16/17 01/17/17 01/17/17 21:59 05:59 13:59 Intake Total 600 / 600 500 / 500 Output Total 850 / 850 875 / 875 Balance -250 / -250 -375 / -375 Weight 207 lb Intake & Output: Intake & Output 01/16/17 01/17/17 01/17/17 21:59 05:59 13:59 Intake Total 600 / 600 500 / 500 Output Total 850 / 850 875 / 875 Balance -250 / -250 -375 / -375 Weight 207 lb Intake: Oral 600 / 600 500 / 500 Output: Urine Catheter Amount 850 / 850 875 / 875 Other: Meal Dinner Percent of Meal Consumed 100% Feeding Ability Assist with Tray Set Up # Bowel Movements 1 Medical - PN: Obj Da - Labs CBC & Chem 7: 01/17/17 03:30 01/17/17 03:30 Labs: Abnormal Lab Results 01/17/17 01/17/17 01/16/17 03:30 03:30 03:40 WBC RBC 3.13 L Hgb 9.1 L Hct 27.5 L RDW 16.1 H Gran % 81.4 H Lymph % (Auto) 10.1 L Gran # Lymph # (Auto) 1.0 L [place] # (Auto) Carbon Dioxide 18 L Anion Gap BUN 67 H Creatinine 3.0 H Glucose 168 H Uric Acid 8.3 H Calcium 8.1 L Phosphorus Magnesium Iron 41 L TIBC 179 L Lactate Dehydrogenase 289 H NT-Pro-B Natriuret Pep Total Protein 5.7 L Albumin 2.7 L Albumin/Globulin Ratio 0.9 L Triglycerides 187 H PTH Intact 110.5 H U [place] Prot/Creat Ratio 01/16/17 01/16/17 01/15/17 03:40 03:40 03:35 WBC RBC 2.95 L Hgb 8.6 L Hct 26.0 L RDW 16.4 H Gran % 80.6 H Lymph % (Auto) 9.6 L Gran # 8.9 H Lymph # (Auto) 1.1 L [place] # (Auto) 1.0 H Carbon Dioxide 17 L 16 L Anion Gap 17.0 H 19.0 H BUN 66 H 47 H Creatinine 3.4 H 3.2 H Glucose 159 H 267 H Uric Acid 8.2 H Calcium 8.0 L 8.4 L Phosphorus 4.6 H 5.1 H Magnesium 1.5 L Iron TIBC Lactate Dehydrogenase 277 H 322 H NT-Pro-B Natriuret Pep Total Protein 5.3 L 5.7 L Albumin 2.5 L 2.5 L Albumin/Globulin Ratio 0.9 L 0.8 L Triglycerides PTH Intact U [place] Prot/Creat Ratio 01/15/17 01/14/17 01/13/17 03:35 20:11 22:45 WBC 4.3 L RBC 3.13 L Hgb 9.3 L Hct 27.5 L RDW 15.9 H Gran % 85.4 H Lymph % (Auto) 11.4 L Gran # Lymph # (Auto) 0.5 L [place] # (Auto) Carbon Dioxide 16 L Anion Gap 17.0 H BUN 41 H Creatinine 3.1 H Glucose 212 H Uric Acid Calcium 8.1 L Phosphorus Magnesium Iron TIBC Lactate Dehydrogenase NT-Pro-B Natriuret Pep 36365.0 H Total Protein Albumin Albumin/Globulin Ratio Triglycerides PTH Intact U [place] Prot/Creat Ratio 1.93 H Meds: Medications Acetaminophen (Tylenol) 650 mg PO Q6HP PRN PRN Reason: PAIN/FEVER > 101 Last Admin: 01/14/17 16:35 Dose: 650 mg Albuterol/Ipratropium (Duoneb) 3 ml NEB Q4HRT [facility] Last Admin: 01/17/17 08:00 Dose: Not Given Amlodipine Besylate (Norvasc) 10 mg PO DAILY [facility] Last Admin: 01/17/17 10:07 Dose: 10 mg Clonidine HCl (Catapres) 0.1 mg PO Q4HP PRN PRN Reason: Hypertension Last Admin: 01/17/17 07:43 Dose: 0.1 mg Dextrose (Dextrose 50%) 0 ml IV UD PRN PRN Reason: Hypoglycemia Diagnostic Test (Pha) (Accu-Chek) 1 each FS ACHS [facility] Last Admin: 01/17/17 07:55 Dose: 1 each Fish Oil (Fish Oil) 1,000 mg PO BID [facility] Last Admin: 01/17/17 10:07 Dose: 1,000 mg Glucose (Insta-Glucose) 15 gm PO PRN PRN PRN Reason: Hypoglycemia Heparin Sodium (Porcine) (Heparin) 5,000 unit SQ Q12 [facility] Last Admin: 01/17/17 10:07 Dose: 5,000 unit Hydralazine HCl (Apresoline) 10 mg PO TID [facility] Last Admin: 01/17/17 10:07 Dose: 10 mg Azithromycin 250 mg/ Dextrose 250 mls @ 250 mls/hr IV Q24H [facility] Stop: 01/17/17 10:59 Last Infusion: 01/16/17 12:10 Dose: Infused Ceftriaxone Sodium 1 gm/ (Dextrose) 50 mls @ 100 mls/hr IV Q24H [facility] Last Admin: 01/17/17 10:07 Dose: 100 mls/hr Insulin Glargine (Lantus) 30 unit SQ BID [facility] Last Admin: 01/16/17 21:13 Dose: 30 unit Insulin Human Lispro (Humalog) 0 unit SQ [facility] PRN Reason: Protocol Loperamide HCl (Imodium) 2 mg PO PRN PRN PRN Reason: Diarrhea Magnesium Hydroxide (Milk Of Magnesia) 30 ml PO DAILYP PRN PRN Reason: Constipation Metoprolol Tartrate (Lopressor) 25 mg PO BID [facility] Last Admin: 01/17/17 10:07 Dose: 25 mg Naloxone HCl (Narcan) 0.1 mg IV Q2MIN PRN PRN Reason: Opiate Reversal Omeprazole (Prilosec) 20 mg PO ACB [facility] Ondansetron HCl (Zofran) 4 mg IV Q4HP PRN PRN Reason: Nausea And Vomiting Oxycodone/Acetaminophen (Percocet 5-325 Mg) 1 tab PO Q4HP PRN PRN Reason: Pain Last Admin: 01/15/17 20:21 Dose: 1 tab Prednisone (Prednisone) 40 mg PO [facility] Stop: 01/18/17 08:01 Last Admin: 01/17/17 07:43 Dose: 40 mg Pregabalin (Lyrica) 200 mg PO BID [facility] Last Admin: 01/17/17 10:07 Dose: 200 mg Simvastatin (Zocor) 10 mg PO [facility] Last Admin: 01/16/17 21:15 Dose: 10 mg Medical - PN: A/P - Time Spent With Patient Total time spent is greater than 50% in coordination of care (as documented) at patient's floor/unit and/or counseling patient: Medical - PN: Qual - VTE Deep Vein Thrombosis/Pulmonary Embolism Present on Admission: No
[2017-01-17] MEDS: FAMOTIDINE 20 MG TABLET PO SCH (10:26)
[2017-01-17] MEDS ORDERED: OMEPRAZOLE 20 MG CAPSULE PO SCH (10:30)
[2017-01-17] MEDS: AZITHROMYCIN 250 MG in DEXTROSE 5% IN WATER 250 ML IV SCH (10:47)
--- NOTE | 2017-01-17 15:53 | Discharge Summary ---
Medical - DS: Prov Patient information: Note initiated : 01/17/17 at 3:46 pm Service Date, if different from initiated Date: [] Patient: Vince Rivas 51 y/o M admitted on 01/13/17 for Weakness/Pneumonia. Chief Complaint: [] Date of admission: 01/13/17 22:55 Discharge date: 01/17/17 Primary care physician: PCP No ?Dr. Luo in [facility] Admitting clinician: Judy Omer Consults: 01/15/17 07:42 Consult to Physician [CONS] Routine Comment: renal failure. Consulting Provider: Ericka Gallegos Reason For Exam: Physician to Consult Attending physician on discharge: Sandy Ozuna Medical - DS: Meds - Discharge Medications Prescriptions: amLODIPine [Norvasc] 10 mg PO DAILY #30 tab Amoxicillin/Potassium Clav [Augmentin] 875 mg PO BIDCC #14 tab hydrALAZINE [Apresoline] 10 mg PO TID #90 tab Metoprolol Tartrate [Lopressor] 25 mg PO BID #60 tab Omeprazole [Prilosec] 20 mg PO ACB #30 cap Active and Home Medications: Discharge medications: Augmentin 875 mg p.o. twice daily with food, 7 more days Albuterol inhaler 2 puffs every 4 hours as needed for wheezing Amlodipine 10 mg p.o. daily for blood pressure (Hydralazine 10 mg p.o. 3 times daily for blood pressurethis prescription was discontinued, on the advice of Dr. Gallegos) Metoprolol 25 mg p.o. twice daily for blood pressure Tylenol 650 mg every 6 hours as needed Fish oil 1000 mg p.o. twice daily Levemir insulin 30 units subcu twice a day Lyrica 200 mg twice a day Omeprazole 20 mg every morning for reflux Simvastatin/Zocor 10 mg nightly Stop taking lisinopril, as this can compromise her kidney function Previous home Medications: Levemir Flextouch 30 units SQ BID 01/14/17 [History Confirmed 01/14/17 Last Taken 01/13/17 08:00] Lisinopril [Zestril] 10 mg PO 01/14/17 [History Last Taken 01/13/17 09:00 10 MG. ] Lyrica 200 mg PO BID 01/14/17 [History Confirmed 01/14/17 Last Taken 01/13/17 09 :00] Novolog Flexpen SQ TIDP PRN 01/14/17 [History Last Taken 01/13/17 2 UNITS] [place]-3 Acid Ethyl Esters 1 gm PO BID 01/14/17 [History Confirmed 01/14/17 Last Taken 01/13/17 09:00 2 CAPS] Proventil Hfa 2 puff INH Q4HP PRN 01/14/17 [History Confirmed 01/14/17 Last Taken Unknown] Simvastatin [Zocor] 40 mg PO HS 01/14/17 [History Confirmed 01/14/17 Last Taken 01/12/17 21:00 40 MG.] Medical - DS: Hosp Hospital course: Mr. Rivas is a 51 year old M January 13, 2017: History of present illness: Mr. Rivas is a 51 year old Male with multiple medical issues h/o humira use for psoriasis, but not for last 6 months presents to the ER with his as he was not feeling well over last 2 days. the patient was at his baseline status until yesterday afternoon when he noticed he was having some cough and not feeling very well, associated with some nauseaand stomach upset. His has had and while infection and he thought that he has got the same. This morning the patient had some nausea and vomiting. No blood in vomitus, however, he did vomit out what ever he ate. He has been feeling progressively weak since yesterday Since this afternoon he has been dizzy with weakness, unable to ambulate well, having chills, rigors and sweating, he therefore presented to the hospital for further evaluation. In the ER he was febrile, hypertensive, tachycardic and tachypenic, He was noted to have left basilar crackles and was thought to have pneumonia. labs show normal wbc, elevated procal at 0.55, elevated creat at 2.7, no h/o renal dysfunction as per patient. The X Ray was done not officially reported but there is diffuse congestion and possible left retrocardiac infiltrate. The patient was given rocephin and zithromax and admitted to the hospital for further management. ABG done in the ER 7.37/32/74 on 2 L oxygen. Oct 5 Pt seen exmined, somewhat looks better but still febrile, wbc normal, patient still febrile, renal functinon worsening, renal us ordered, IV fluids started, consider renal consult in AM if renal function continues to worsen Patient still has cough and feels weak and fatigued, but otherwise no other complaints. January 15: patient seen examined, looks better, feels better, wbc trending down and he is afebrile He denies any acute complaints but still is weak His labs show worsening acidosis and worsening renal function, creat is up to 3.2 now, He is making urine, I have consulted nephrology for eval ABG done today shows PH 7.32/, lactic acid is 0.7 he is participating in PT and seems to be doing well January 16: This patient has numerous underlying conditions, including type 2 diabetes, chronic tobacco abuse, multiple previous TIAs, previous AR, COPD, psoriasis, and presented on January 13 with weakness and chills. He was diagnosed with bilateral pneumonia, although he had a normal white blood cell count. He was also noted to have significant worsening of his renal function. Blood glucoses have also been running rather markedly high. He is currently being treated with Rocephin and Zithromax for community-acquired pneumonia. He has been slowly improving. Today, the patient says he continues to have a nonproductive cough. He still has a little bit of heartburn. He denies fever or chills, chest pain or shortness of breath. His speech is a little slurred, and initially his blames this on his previous TIAs, but then later says she thinks he is a little more confused than usual because we have given him pain medications. He had one episode of a loose stool last night. He denies any dysuria. His notes that he has been having heartburn since he has been here. She does not think that we have given him the same medication that he takes over-the -counter at home for this. He admits that he still smokes about half a pack of cigarettes per week. January 17: Hospital course: This morning, the patient again woke up seeming rather confused and agitated. Nurses checked his glucose, and he was down to 60. He was given several rounds of juice, and that came back up. Continue to be intermittently agitated over the course of the day. Initially the nurse and his thought he had been hallucinating about animals in his room. Later his explained that his vision is very poor, due to diabetic eye changes. When they were walking in the [place], he saw some shadows that she thinks she thought was an animal crossing the [place]. She says he has had instances like this in the past, where he thought an IV pole was a person, etc. She says his mental status is approaching normal for him. This morning, he denied fever chills. He continued to complain of suboptimal vision. He continues to have a cough which is minimally productive, and continues to have wheezing. He is not significantly short of breath. He has been having some heartburn, and requests that we resume his omeprazole instead of the Pepcid. He did have a bowel movement last night. This afternoon, he became increasingly upset. He had arranged for his son and a friend to help him move some of his belongings this weekend, as he is not really able to lift things himself. He became very upset when Dr. Glalegos and I told him that he should stay in the hospital another few days, regarding his pneumonia and renal failure. He eventually said he was going to leave whether we elected or not. He said if his would not drive him to [place], he would drive himself, even though his doctors have told him he is not safe to drive any longer. His requested that we go ahead and let him leave, so that he would calm down. I discussed with them both at length that to stop pneumonia treatment in the middle, and to let him go before we had sorted out his renal function and his subsequent elevated blood pressures, would represent a threat to his health and life. They say they understand, but decided to leave AGAINST MEDICAL ADVICE anyway. Since he was determined to leave, I did go ahead and write up discharge instructions and put him on oral antibiotics. I also printed out for him the changes in his medication regimen, and called all of the new prescriptions into [facility]. On exam, he is a well-developed well-nourished man, who seems a little bit drifty on questioning. Speech is a bit slurred, which is reportedly his baseline.. Temperature 98.4. Heart rate 80. Respiratory rate 18. Blood pressure 174/98. O2 saturation 97% on room air. Intake and output measurements suggest that he is ahead on fluids by about 3800 mL. Neck shows no obvious JVD or lymphadenopathy. Cardiac exam shows regular rate and rhythm. Lungs breath sounds are quite coarse, with diffuse soft wheezes heard throughout both lung sears. Abdomen is obese, but soft and nontender. Extremities show trace edema. Neurologic exam: The patient is awake and alert, but tends not to answer the questions I ask. He still continues to wander off topic when asked direct questions. Becomes quite agitated when we talk about the fact that he should not be driving, and disagrees with the idea that it may be unsafe not only for him but for other people on the road. Motor exam is otherwise grossly symmetric. His tells me that she would not let him drive, and she always drives him wherever he needs to go. A/P Narrative: #1. Sepsis- resolved . #2. Infectious disease. Community Acquired pneumonia- fever resolved, clinically improving with rocephin and zithromax, cultures neg so far. Screens for influenza a and B are negative. Mycoplasma screen is negative. Legionella screen is pending. Urine strep screen is also negative. -The patient continues to exhibit bronchospasm, and presumably still has bilateral pneumonia. He is extremely resistant to the idea of continuing on IV antibiotics, and therefore has signed AMA forms, so that he can leave today. Started on Augmentin 875 mg p.o. twice daily for another week. Next Use albuterol inhaler every 4 hours as needed. He completed a course of IV Zithromax. He is advised to seek help if he develops fever, increasing cough or shortness of breath. #3. Acute Kidney Injury-somewhat improved today, with a creatinine down to 3.0 , likely has some baseline CKD, will try to get old records. -Kidney function continues abnormal.. He is being followed by nephrology. Dr. Gallegos has rearranged his blood pressure medications, to get them under better control. She recommended that we not send him home on hydralazine today though, as he was complaining of dizziness. This prescription was canceled. -The patient and his said they plan to follow-up with Dr. Gallegos in her clinic next week. I's and O's are quite positive at this time. #4. Endocrine. Hyperglycemia, Uncontrolled Diabetes, -Lantus was resumed and sliding scale is increased. Today glucoses are actually too low. Today he is ranged from 60 to as high as 143. We had planned to check glucoses every 4 hours for 24 hours, to be sure we were not missing significant lows. Unfortunately, the patient elected not to stay for that. He is encouraged to check his blood sugars frequently at home for the next few days. #5. HTN- uncontrolled, hold home meds as can cause nephrotoxicitiy, -Nephrology continued amlodipine and metoprolol, and added hydralazine. Hydralazine was held, due to dizziness. Patient will follow up with Dr. Gallegos this coming week. #6. Cardiac. CAD s/p AR- no chest pain, on asa and statin. BNP is quite elevated, and there is some question of CHF. -Echocardiogram was done, but report is still pending. -Because of his confusion, troponin and EKG were checked today. EKG did not look significantly different. Troponin is elevated, but that is likely due to renal failure. We have plan to check another one this evening to trend that, but again he decided to leave. #7. Neurologic. Neuropathy- on lyrica, likely from DM -Patient has altered speech, and seems to have at least occasional confusion. He has a previous history of multiple TIAs, as well as uncontrolled diabetes. I had planned on trying to do a head skin this evening if he still seems confused, but he has declined further evaluation at this time. #8. Non Anion Gap Acidosis/ and anion gap acidosis_ From renal failure, nephrology following. #9. Pulmonary copd/asthma exacerbation- -Patient completed steroids and Zithromax. He will continue with albuterol, and add oral Augmentin. 10. Tobacco abuse. I strongly encouraged the patient to give up smoking. We discussed that tobacco is bad for his heart disease, his risk of stroke, his lungs, and his kidneys. #11. DVT prophylaxis with hep sq #12. Diet cardiac, diabetic. He may also need a renal diet. #13. Full code #14. PCP dr Mega Colin (or Dr. Luo) at [facility], in [place], [place]. Approximately 45 minutes was spent today, reviewing the patient's test results, interviewing and examining him, meeting with he and his at least twice, and then writing orders. Discharge diagnosis: Bilateral community-acquired pneumonia. Acute renal failure. Hypertension Secondary discharge diagnosis: Diabetes with numerous complications. History of TIAs. Altered speech and balance. COPD. Psoriasis. Previous AR. Confusion. - Time Spent with Patient Total time spent providing and/or coordinating discharge services: Greater than 30 minutes Medical - DS: Exam - Constitutional Vitals: Vital Signs Temp Pulse Pulse Resp BP BP Pulse Ox 01/17/17 12:00 98.6 F 80 18 163/99 97 01/17/17 07:37 98.5 F 85 20 184/97 99 01/17/17 06:45 20 98 01/17/17 04:00 99.0 F H 20 173/89 97 01/17/17 00:00 98.6 F 20 165/87 96 01/16/17 23:24 80 20 01/16/17 20:00 98.9 F 82 20 161/82 96 01/16/17 18:42 80 18 01/16/17 18:35 79 95 01/16/17 16:00 97.7 F 81 18 163/86 95 Intake and Output 01/17/17 01/17/17 01/17/17 05:59 13:59 21:59 Intake Total 500 / 500 1490 / 1490 Output Total 875 / 875 1075 / 1075 Balance -375 / -375 415 / 415 Intake: IV 300 / 300 Rocephin 1 gm In Dextrose 5% in 50 / 50 Water 50 ml @ 100 mls/hr IV Q24H [facility] Rx#:[id number] Oral 500 / 500 830 / 830 GI Tube Flush 360 / 360 Output: Urine Catheter Amount 875 / 875 1075 / 1075 Other: Meal Breakfast Percent of Meal Consumed 75% Feeding Ability Independent # Bowel Movements 1 Medical - DS: Data Labs on day of discharge: Labs from last 24 hours 01/17/17 01/17/17 01/17/17 09:30 03:30 03:30 WBC 9.6 RBC 3.13 L Hgb 9.1 L Hct 27.5 L MCV 87.7 MCH 29.0 MCHC 33.1 RDW 16.1 H Plt Count 204 MPV 9.8 Gran % 81.4 H Lymph % (Auto) 10.1 L [place] % (Auto) 8.4 Eos % (Auto) 0 Baso % (Auto) 0.1 Gran # 7.8 Lymph # (Auto) 1.0 L [place] # (Auto) 0.8 Eos # (Auto) 0 Baso # (Auto) 0 Sodium 141 Potassium 3.9 Chloride 108 Carbon Dioxide 18 L Anion Gap 15.0 BUN 67 H Creatinine 3.0 H GFR Calculation 23 Glucose 168 H Uric Acid 8.3 H Calcium 8.1 L Phosphorus 4.4 Magnesium 2.0 Iron 41 L TIBC 179 L Unsat Iron Binding 138 Transferrin % Sat 22 Ferritin 269.1 Total Bilirubin < 0.2 Direct Bilirubin < 0.2 GGT 20 AST 20 ALT 16 Alkaline Phosphatase 66 Lactate Dehydrogenase 289 H Troponin T 0.15 H* Total Protein 5.7 L Albumin 2.7 L Globulin 3.0 Albumin/Globulin Ratio 0.9 L Triglycerides 187 H Vitamin B12 509.2 Ur Strep pneumoniae Ag 01/16/17 15:32 WBC RBC Hgb Hct MCV MCH MCHC RDW Plt Count MPV Gran % Lymph % (Auto) [place] % (Auto) Eos % (Auto) Baso % (Auto) Gran # Lymph # (Auto) [place] # (Auto) Eos # (Auto) Baso # (Auto) Sodium Potassium Chloride Carbon Dioxide Anion Gap BUN Creatinine GFR Calculation Glucose Uric Acid Calcium Phosphorus Magnesium Iron TIBC Unsat Iron Binding Transferrin % Sat Ferritin Total Bilirubin Direct Bilirubin GGT AST ALT Alkaline Phosphatase Lactate Dehydrogenase Troponin T Total Protein Albumin Globulin Albumin/Globulin Ratio Triglycerides Vitamin B12 Ur Strep pneumoniae Ag Negative Preliminary micro results at discharge 01/13/17 19:22 Blood Culture - Preliminary Blood 01/13/17 19:03 Blood Culture - Preliminary Blood January 17: Echocardiogram is completed: Report is pending. January 16: Urine culture is negative. Blood cultures are negative so far. Sputum culture: Showed oral contamination. Renal ultrasound/Doppler: This was a difficult study, but the right main renal artery shows elevated peak pressure, with possible 50% stenosis. Left artery looks normal. January 15: ABG on room air: 7.32, PCO2 31, PO2 78, bicarb 16, O2 saturation 94% January 14: BNP is elevated at 23,178 Albumin is low at 2.5 PTH-intact is elevated at 110 Hepatitis B and C screens are negative. Multiple rheumatologic studies are still pending. Chest x-ray: Shows persistent infiltrates in both lungs which could be due to pneumonia versus other inflammation, versus pulmonary vascular congestion. Next Renal ultrasound shows increased echogenicity suggesting medical renal disease. Diminished urine output bilaterally. Medical - DS: A/P - Patient/Caregiver Discharge Instructions Activity: increase activity as tolerated Diet: Renal/Consistent Carbs Additional Instructions: 1. Infectious disease. You have been diagnosed with a lateral pneumonia. You have chosen to leave the hospital AGAINST MEDICAL ADVICE, before your treatment was complete. We will give you a prescription for an oral antibiotic. Please take as directed. Please watch for any signs of fever, chills, chest pain, worsening shortness of breath, as these may be signs that your pneumonia is getting worse. You can choose to use your inhaler 2 puffs every 4 hours as needed for wheezing. 2. Acute renal failure. We have not quite sorted out the cause of this yet. It looks somewhat better today. However because of your kidneys, your blood pressure has been very high. The car top bolter, Dr. Gallegos, rearranged her blood pressure medications, as below. Please take these exactly as directed. Please follow-up with her next week as directed. Please only take Tylenol for pain. Do not take ibuprofen, Aleve, over-the- counter anti-inflammatory medications, as these are hard in your kidneys. #3. Diabetes. Blood sugar was quite low this morning. Please check every 4 hours for the first 24 hours, to be sure you are not taking too much insulin. Discharge medications: Augmentin 875 mg p.o. twice daily with food, 7 more days Albuterol inhaler 2 puffs every 4 hours as needed for wheezing Amlodipine 10 mg p.o. daily for blood pressure Metoprolol 25 mg p.o. twice daily for blood pressure Tylenol 650 mg every 6 hours as needed Fish oil 1000 mg p.o. twice daily Levemir insulin 30 units subcu twice a day Lyrica 200 mg twice a day Omeprazole 20 mg every morning for reflux Simvastatin/Zocor 10 mg nightly Stop taking lisinopril, as this can compromise her kidney function Previous home Medications: Levemir Flextouch 30 units SQ BID 01/14/17 [History Confirmed 01/14/17 Last Taken 01/13/17 08:00] Lisinopril [Zestril] 10 mg PO 01/14/17 [History Last Taken 01/13/17 09:00 10 MG. ] Lyrica 200 mg PO BID 01/14/17 [History Confirmed 01/14/17 Last Taken 01/13/17 09 :00] Novolog Flexpen SQ TIDP PRN 01/14/17 [History Last Taken 01/13/17 2 UNITS] [place]-3 Acid Ethyl Esters 1 gm PO BID 01/14/17 [History Confirmed 01/14/17 Last Taken 01/13/17 09:00 2 CAPS] Proventil Hfa 2 puff INH Q4HP PRN 01/14/17 [History Confirmed 01/14/17 Last Taken Unknown] Simvastatin [Zocor] 40 mg PO HS 01/14/17 [History Confirmed 01/14/17 Last Taken 01/12/17 21:00 40 MG.] Prescriptions: amLODIPine [Norvasc] 10 mg PO DAILY #30 tab Amoxicillin/Potassium Clav [Augmentin] 875 mg PO BIDCC #14 tab hydrALAZINE [Apresoline] 10 mg PO TID #90 tab Metoprolol Tartrate [Lopressor] 25 mg PO BID #60 tab Omeprazole [Prilosec] 20 mg PO ACB #30 cap - Follow up Plan Follow up with: No,PCP [Primary Care Provider] - (Dr. LuoGregory, [place]) Disposition: Left Against Medical Advice Prognosis: Fair Rehab Potential: Fair I certify that the patient requires SNF services: No Overall status at discharge: patient is not back to baseline Medical - DS: Qual - VTE Deep Vein Thrombosis/Pulmonary Embolism Present on Admission: No
--- NOTE | 2017-01-17 19:57 | Nephrology Progress Note ---
Subjective Patient information: Note initiated : 01/17/17 at 7:55 pm Service Date, if different from initiated Date: [] Patient: Vince Rivas 51 y/o M admitted on 01/13/17 for Weakness/Pneumonia. Chief Complaint: [] Principal diagnosis: Pneumonia Interval history: patient noted to have some confusion this am and per nursing staff was confused intermittently through the day he has some LE swelling he denies SOB, CP he has no GI symptoms he is eating well his yepez was d/arcelia this am, he has not voided since yepez was removed when this afternoon his BP is still elevated his blood glucose is somewhat better rather was hypogylcemic this am his s.creatinine is a little better Pertinent ROS: as documented above Objective - Vital Signs Vital signs: Vital Signs Temp Pulse Pulse Resp BP BP Pulse Ox 01/17/17 15:30 98.4 F 80 18 174/98 97 01/17/17 12:00 98.6 F 80 18 163/99 97 01/17/17 07:37 98.5 F 85 20 184/97 99 01/17/17 06:45 20 98 01/17/17 04:00 99.0 F H 20 173/89 97 01/17/17 00:00 98.6 F 20 165/87 96 01/16/17 23:24 80 20 01/16/17 20:00 98.9 F 82 20 161/82 96 Intake and Output 01/17/17 01/17/17 01/17/17 05:59 13:59 21:59 Intake Total 500 / 500 1490 / 1490 300 / 300 Output Total 875 / 875 1075 / 1075 250 / 250 Balance -375 / -375 415 / 415 50 / 50 Intake: IV 300 / 300 Rocephin 1 gm In Dextrose 5% in 50 / 50 Water 50 ml @ 100 mls/hr IV Q24H [facility] Rx#:[id number] Oral 500 / 500 830 / 830 300 / 300 GI Tube Flush 360 / 360 Output: Urine Catheter Amount 875 / 875 1075 / 1075 Void Amount 250 / 250 Other: Meal Breakfast Percent of Meal Consumed 75% Feeding Ability Independent # Voids 1 # Bowel Movements 1 Intake & Output: Intake & Output 01/17/17 01/17/17 01/17/17 05:59 13:59 21:59 Intake Total 500 / 500 1490 / 1490 300 / 300 Output Total 875 / 875 1075 / 1075 250 / 250 Balance -375 / -375 415 / 415 50 / 50 Intake: IV 300 / 300 Rocephin 1 gm In Dextrose 5% in 50 / 50 Water 50 ml @ 100 mls/hr IV Q24H [facility] Rx#:[id number] Oral 500 / 500 830 / 830 300 / 300 GI Tube Flush 360 / 360 Output: Urine Catheter Amount 875 / 875 1075 / 1075 Void Amount 250 / 250 Other: Meal Breakfast Percent of Meal Consumed 75% Feeding Ability Independent # Voids 1 # Bowel Movements 1 - General Appearance General appearance: appears started age, chronically ill EENT: mucous membranes moist Neck: no JVD Respiratory: clear Cardiology: no rub, edema, normal S1, normal S2 Gastrointestinal: no tenderness, no guarding, no masses Integumentary: warm and dry Neurologic: alert and oriented x3 (when seen but confused intermittently per nursing staff ) Musculoskeletal: no erythema, no cyanosis, no clubbing Psychiatric: mood/affect appropriate (anxious to be discharged ) - Lab 01/17/17 03:30 01/17/17 03:30 Most recent lab results Calcium 8.1 mg/dl (8.6-10.4) L 01/17/17 03:30 Phosphorus 4.4 mg/dL (2.7-4.5) 01/17/17 03:30 Magnesium 2.0 mg/dL (1.6-2.5) 01/17/17 03:30 Assessment and Plan (1) Acute on chronic renal failure s.creatinine is 3.4 this am, egfr is 20ml/min per CKD EPI equation slow steady decline of renal function in the setting of sepsis, uncontrolled DM and HTN WORK UP FOR SECONDARY ETIOLOGY pending s.creatinine is a little better at 3.0 from 3.4 this am non oliguric BP still elevated given this and intermittent confusion requested to stay another day but I was informed that the patient elected to go AMA Dr Hernandez has explained risk involved in leaving against medical advice including progressive renal failure, , etc patient was instructed to ensure he does not use NSAIDS, requested not to resume lisinopril and take discharge antihypertensives until he sees me or his PCP in the clinic instructed clearly to ensure renal function checked within 7 days and he could follow with me in the clinic if he wishes to, RN was suppose to give him contact information to clinic Status: Acute
[2017-01-18 11:35] LABS: Legionella pneumophilia Ag, Ur NOT DETECTED
[2017-01-21 10:59] LABS: DNA AB(DS) Crithidia, IFA NEGATIVE (NEGATIVE); Rhuematoid Factor 10 IU/mL (<14); SM Antibody <1.0 NEG AI (SEE COMMENT); Scl-70 <1.0 NEG AI (SEE COMMENT)
== END 2017-01-17 16:00 | disposition left against medical advice (07) | DRG 871 ==
LOC: ED 18:16 → ICU 22:50
PROVIDERS: ADMIT Internal Medicine; ATTEND Internal Medicine